=== PATIENT | male | born 1945 | race Caucasian/White ===

== ENCOUNTER 2020-01-02 02:43 | Emergency (ER) | payer OTHER ==
--- OUTSIDE RECORDS SUMMARY | 2020-01-02 02:45 | XMS REPORT ---
:1945 Author Organization eClinicalWorks Care Team Providers Name Role Phone Yovana Osborn Provider Role Unavailable Allergies, Adverse Reactions, Alerts Substance Reaction Event Type N.K.D.A. Info Not Available Non Drug Allergy Problems Problem Type Condition Code Onset Dates Condition Status Problem Pain in limb M79.609 Active Problem Elevated blood pressure reading R03.0 Active without diagnosis of hypertension Problem Depression F32.9 Active Problem Encounter for vitamin deficiency Z13.21 Active screening Assessment Encounter for vitamin deficiency Z13.21 Active screening Problem Depression screening Z13.31 Active Problem Fatigue, unspecified type R53.83 Active Problem Chronic kidney disease, unspecified N18.9 Active CKD stage Problem Hypothyroidism, unspecified type E03.9 Active Problem White coat syndrome with I10 Active hypertension Problem Elevated BP without diagnosis of R03.0 Active hypertension Assessment Fatigue, unspecified type R53.83 Active Assessment Depression screening Z13.31 Active Assessment Elevated BP without diagnosis of R03.0 Active hypertension Assessment Chronic kidney disease, unspecified N18.9 Active CKD stage Problem Creatinine elevation R74.8 Active Problem Chronic renal disease N18.9 Active Assessment Hypothyroidism, unspecified type E03.9 Active Problem Seasonal allergies J30.2 Active Problem Family history of diabetes mellitus Z83.3 Active Medications Medication Code Code Instructions Start End Status Dosage System Date Date Wellbutrin SR ND 85369715730 150 MG Orally Active 1 tablet Twice a day Ultram ND 26927180309 50 MG Orally Active 1 tablet every 6 hrs as needed Effexor XR ND 76733383333 37.5 MG Orally Active 1 capsule Once a day with food [place] Thyroid ND 42482656868 90 MG Orally Active 1 tablet Once a day on an empty stomach Multivitamin ND 17920646227 - Orally Active not Adult defined [place] Thyroid ND 36643824632 60 MG Orally Active 1 tablet Once a day on an empty stomach in the morning Results No Known Results Summary Purpose eClinicalWorks Submission
--- OUTSIDE RECORDS SUMMARY | 2020-01-02 02:45 | XMS REPORT ---
:1945 [facility] Team Providers Name Role Phone Yovana Osborn Provider Role Unavailable Allergies, Adverse Reactions, Alerts Substance Reaction Event Type N.K.D.A. Info Not Available Non Drug Allergy Problems Problem Type Condition Code Onset Dates Condition Status Problem Elevated blood pressure reading R03.0 Active without diagnosis of hypertension Problem Chronic kidney disease, unspecified N18.9 Active CKD stage Problem Hypothyroidism, unspecified type E03.9 Active Problem S/P ACL repair Z98.890 Active Assessment Acute pain of left knee M25.562 Active Problem Depression screening Z13.31 Active Assessment S/P ACL repair Z98.890 Active Problem Acute pain of left knee M25.562 Active Problem White coat syndrome with I10 Active hypertension Problem Elevated BP without diagnosis of R03.0 Active hypertension Problem Fatigue, unspecified type R53.83 Active Problem Encounter for vitamin deficiency Z13.21 Active screening Assessment Hypothyroidism, unspecified type E03.9 Active Assessment Elevated BP without diagnosis of R03.0 Active hypertension Assessment Chronic kidney disease, unspecified N18.9 Active CKD stage Problem Seasonal allergies J30.2 Active Problem Family history of diabetes mellitus Z83.3 Active Problem Creatinine elevation R74.8 Active Problem Pain in limb M79.609 Active Problem Chronic renal disease N18.9 Active Problem Depression F32.9 Active Medications Medication Code Code Instructions Start End Status Dosage System Date Date Wellbut[place] ND 81416162687 150 MG Orally Active 1 tablet Twice a day Multivitamin [facility] 30968728148 - Orally Active not Adult defined Effexor XR [facility] 32862506441 37.5 MG Orally Active 1 capsule Once a day with food Ultram [facility] 65906343496 50 MG Orally Active 1 tablet every 6 hrs as needed [place] Thyroid ND 37110551407 90 MG Orally Active 1 tablet Once a day on an empty stomach [place] Thyroid [facility] 74812671021 60 MG Orally Active 1 tablet Once a day on an empty stomach in the morning Results No Known Results Summary Purpose eClinicalWorks Submission
[2020-01-02] MEDS ORDERED: ADENOSINE 6 MG/ 2ML VIAL IV ONE ×2 (02:59→03:03)
[2020-01-02] MEDS ORDERED: NA CHLORIDE 0.9% 1,000 ML ONE (03:00)
[2020-01-02] MEDS ORDERED: dilTIAZem HCL 25 MG/5 ML VIAL IV ONE (03:13)
[2020-01-02 03:38] LABS: Protime INR 1.09
[2020-01-02 03:40] LABS: Absolute Lymphocytes (CBC) 2.7 K/uL (0.7-4.9); Basophils % 0.9 % (0-1.3); Hematocrit 50.6 % (39.6-49.0); Lymphocytes % 23.3 % (15.3-44.8); MPV 9.1 fL (7.6-11.3)
[2020-01-02 03:53] LABS: Albumin 3.7 g/dL (3.4-5.0); Bilirubin Direct 0.2 mg/dL (0-0.2); Bilirubin Total 0.8 mg/dL (0.2-1.0); Potassium 3.5 mmol/L (3.5-5.1); Protein, Total 7.9 g/dL (6.4-8.2); Troponin (Emerg Dept Use Only) 0.3 ng/mL (0.0-0.045)
--- NOTE | 2020-01-02 07:55 | RAD REPORT ---
EXAM DESCRIPTION: Bettie Single View01/02/2020 4:01 am CLINICAL HISTORY: Chest pain COMPARISON: 2016 FINDINGS: The lungs are hyperaerated The lungs appear clear of acute infiltrate. The heart is normal size IMPRESSION: No acute abnormalities displayed
--- NOTE | 2020-01-02 09:35 | ER ---
Nurse's Notes [facility] Name: Michele Joseph Age: 74 yrs Sex: Male : 1945 Arrival Date: 01/02/2020 Time: 02:44 Bed 4 Private MD: Diagnosis: Supraventricular tachycardia Presentation: 01/02 02:50 Presenting complaint: Patient states: C/O high heart rate and shortness of breath since yesterday morning. Pt denies chest pain. Transition of care: patient was not received from another setting of care. Onset of symptoms was January 01, 2020. Risk Assessment: Do you want to hurt yourself or someone else? Patient reports no desire to harm self or others. Initial Sepsis Screen: Does the patient meet any 2 criteria? HR > 90 bpm. Does the patient have a suspected source of infection? No. Patient's initial sepsis screen is negative. Care prior to arrival: None. 02:50 Method Of Arrival: Ambulatory 02:50 Acuity: SAM 2 Historical: - Allergies: 03:13 No Known Allergies; - Home Meds: 03:13 Thyroid Medicine [Active]; - PMHx: 03:13 Hypothyroidism; - PSHx: 03:13 Knee surgery; Cataract Surgery; - Immunization history:: Adult Immunizations not up to date, Flu vaccine is up to date. - Coronavirus screen:: The patient has NOT traveled to [place], [place], or [place] in the past 14 days. - Social history:: Smoking status: Patient/guardian denies using. - Ebola Screening: : Patient negative for fever greater than or equal to 101.5 degrees Fahrenheit, and additional compatible Ebola Virus Disease symptoms Patient denies exposure to infectious person. Screenin:14 Abuse screen: Denies threats or abuse. Denies injuries from another. Nutritional screening: No deficits noted. Tuberculosis screening: No symptoms or risk factors identified. Fall Risk None identified. Assessment: 02:55 General: Appears distressed, Behavior is cooperative, anxious. Pain: Complains of pain lp1 in chest. Neuro: Level of Consciousness is awake, alert, obeys commands, Oriented to person, place, time, situation. Cardiovascular: Heart tones present Patient's skin is warm and dry. Pulses are all present. Rhythm is SVT. Respiratory: Airway is patent Respiratory effort is even, Respiratory pattern is symmetrical, Breath sounds are clear bilaterally. GI: Abdomen is non-distended, Reports diarrhea. : No signs and/or symptoms were reported regarding the genitourinary system. EENT: No signs and/or symptoms were reported regarding the EENT system. Derm: Skin is pink, warm \T\ dry. Musculoskeletal: No deficits noted. 02:55 Reassessment: Dr. Barajas at bedside to assess patient for rhythm conversion. lp1 03:30 Reassessment: Patient appears in no apparent distress at this time. Patient is alert, lp1 oriented x 3, equal unlabored respirations, skin warm/dry/pink. Patient denies pain at this time. Patient states feeling better. Patient states symptoms have improved. 05:40 Reassessment: Patient is alert, oriented x 3, equal unlabored respirations, skin fc warm/dry/pink. Updated about lab results and pending d/c home Patient denies pain at this time. Patient states feeling better. Vital Signs: 02:50 BP 146 / 128; Pulse 148; Resp 24; Pulse Ox 100% on R/A; lp1 03:00 BP 134 / 83; Pulse 142; Resp 20; Pulse Ox 100% on R/A; wh 03:00 BP 141 / 82; Pulse 142; Resp 20; Pulse Ox 100% on 2 lpm NC; lp1 03:05 BP 110 / 94; Pulse 94; Resp 19; Pulse Ox 100% on 2 lpm NC; lp1 03:10 BP 121 / 107; Pulse 134; Resp 22; Pulse Ox 100% on 2 lpm NC; lp1 03:14 Weight 88.45 kg; Height 6 ft. 0 in. (182.88 cm); wh 03:15 BP 123 / 71; Pulse 67; Resp 18; Pulse Ox 100% on 2 lpm NC; lp1 03:45 BP 122 / 87; Pulse 65; Resp 16; Pulse Ox 100% on R/A; lp1 04:30 BP 114 / 78; Pulse 61; Resp 16; Pulse Ox 99% on R/A; lp1 05:04 BP 113 / 73; Pulse 65; Resp 19; Pulse Ox 98% on R/A; Pain 0/10; lp1 05:48 BP 136 / 85; Pulse 67; Resp 18; Temp 98.0(O); Pulse Ox 96% on R/A; Pain 0/10; fc 03:14 Body Mass Index 26.45 (88.45 kg, 182.88 cm) ED Course: 02:44 Patient arrived in ED. ag3 02:48 Maycol Barajas MD is Attending Physician. tw4 02:55 Initial lab(s) drawn, by mn, sent to lab. Inserted saline lock: 18 gauge in right lp1 antecubital area, using aseptic technique. Blood collected. 03:12 Triage completed. 03:14 Arm band placed on right wrist. 03:14 Patient has correct armband on for positive identification. Bed in low position. Call light in reach. Side rails up X 1. manager property on. Pulse ox on. NIBP on. 03:24 Maia Main RN is Primary Nurse. lp1 04:16 EKG done, by ED staff, reviewed by Maycol Barajas MD. ds4 05:42 Cyrus Lubin MD is Referral Physician. tw4 05:42 Alberto Claudio MD is Referral Physician. tw4 05:48 No provider procedures requiring assistance completed. IV discontinued, intact, fc bleeding controlled, No redness/swelling at site. Pressure dressing applied. Administered Medications: 03:00 Drug: Adenosine 6 mg Route: IVP; Site: right antecubital; lp1 03:02 Follow up: Response: Marked relief of symptoms lp1 03:00 Drug: NS 0.9% 1000 ml Route: IV; Rate: 1000 ml; Site: right antecubital; lp1 04:00 Follow up: Response: No adverse reaction; IV Status: Completed infusion; IV Intake: fc 1000ml 03:10 Drug: Cardizem 10 mg Route: IVP; Site: right antecubital; lp1 03:29 Follow up: Response: Marked relief of symptoms; Cardiac rhythm changed lp1 Intake: 04:00 IV: 1000ml; Total: 1000ml. fc Outcome: 05:38 Discharge ordered by . tw4 05:48 Discharged to home ambulatory, with family. fc 05:48 Condition: good 05:48 Discharge instructions given to patient, family, Instructed on discharge instructions, follow up and referral plans. Demonstrated understanding of instructions, follow-up care, Prescriptions given X none 05:49 Patient left the ED. fc Signatures: Jennifer Diaz RN RN fc Maia Main RN RN lp1 Seven Perdue ds4 Shade Holguin Maycol Barajas MD MD tw4 Tracey Sheth ag3 Corrections: (The following items were deleted from the chart) 04:39 02:50 Acuity: SAM 3 [facility]
--- NOTE | 2020-01-02 09:36 | EDPHYS ---
Physician Documentation [facility] Name: Michele Joseph Age: 74 yrs Sex: Male : 1945 Arrival Date: 01/02/2020 Time: 02:44 Bed 4 Private MD: ED Physician Maycol Barajas HPI: 01/02 04:13 This 74 yrs old Male presents to ER via Ambulatory with complaints of RAPID tw4 HEART RATE. 04:13 The patient presents with a history of heart racing. Context: The symptoms occur at tw4 rest. Onset: The symptoms/episode began/occurred just prior to arrival. Duration: The patient or guardian reports a single episode, that is still ongoing. Modifying factors: The symptoms are aggravated by nothing. The symptoms are alleviated by nothing. Associated signs and symptoms: The patient has no apparent associated signs or symptoms. Severity of symptoms: At their worst the symptoms were moderate in the emergency department the symptoms are unchanged. The patient has not experienced similar symptoms in the past. Historical: - Allergies: 03:13 No Known Allergies; - Home Meds: 03:13 Thyroid Medicine [Active]; - PMHx: 03:13 Hypothyroidism; [facility] PSHx: 03:13 Knee surgery; Cataract Surgery; - Immunization history:: Adult Immunizations not up to date, Flu vaccine is up to date. - Coronavirus screen:: The patient has NOT traveled to [place], [place], or [place] in the past 14 days. - Social history:: Smoking status: Patient/guardian denies using. - Ebola Screening: : Patient negative for fever greater than or equal to 101.5 degrees Fahrenheit, and additional compatible Ebola Virus Disease symptoms Patient denies exposure to infectious person. ROS: 04:13 Constitutional: Negative for fever, chills, and weight loss, Eyes: Negative for injury, tw4 pain, redness, and discharge, Respiratory: Negative for shortness of breath, cough, wheezing, and pleuritic chest pain, Abdomen/GI: Negative for abdominal pain, nausea, vomiting, diarrhea, and constipation, Back: Negative for injury and pain, MS/Extremity: Negative for injury and deformity, Skin: Negative for injury, rash, and discoloration, Neuro: Negative for headache, weakness, numbness, tingling, and seizure. 04:13 Cardiovascular: Positive for palpitations, Negative for chest pain, edema, orthopnea, acute changes. Exam: 04:13 Constitutional: This is a well developed, well nourished patient who is awake, alert, tw4 and in no acute distress. Head/Face: Normocephalic, atraumatic. Eyes: Pupils equal round and reactive to light, extra-ocular motions intact. Lids and lashes normal. Conjunctiva and sclera are non-icteric and not injected. Cornea within normal limits. Periorbital areas with no swelling, redness, or edema. Chest/axilla: Normal chest wall appearance and motion. Nontender with no deformity. No lesions are appreciated. 04:13 Respiratory: Lungs have equal breath sounds bilaterally, clear to auscultation and percussion. No rales, rhonchi or wheezes noted. No increased work of breathing, no retractions or nasal flaring. Abdomen/GI: Soft, non-tender, with normal bowel sounds. No distension or tympany. No guarding or rebound. No evidence of tenderness throughout. Back: No spinal tenderness. No costovertebral tenderness. Full range of motion. MS/ Extremity: Pulses equal, no cyanosis. Neurovascular intact. Full, normal range of motion. Neuro: Awake and alert, GCS 15, oriented to person, place, time, and situation. Cranial nerves II-XII grossly intact. Motor strength 5/5 in all extremities. Sensory grossly intact. Cerebellar exam normal. Normal gait. 04:13 Cardiovascular: Rate: tachycardic, actual rate is 147 bpm, Rhythm: regular, Pulses: no pulse deficits are appreciated, Heart sounds: normal, Edema: is not appreciated. Vital Signs: 02:50 BP 146 / 128; Pulse 148; Resp 24; Pulse Ox 100% on R/A; lp1 03:00 BP 134 / 83; Pulse 142; Resp 20; Pulse Ox 100% on R/A; wh 03:00 BP 141 / 82; Pulse 142; Resp 20; Pulse Ox 100% on 2 lpm NC; lp1 03:05 BP 110 / 94; Pulse 94; Resp 19; Pulse Ox 100% on 2 lpm NC; lp1 03:10 BP 121 / 107; Pulse 134; Resp 22; Pulse Ox 100% on 2 lpm NC; lp1 03:14 Weight 88.45 kg; Height 6 ft. 0 in. (182.88 cm); wh 03:15 BP 123 / 71; Pulse 67; Resp 18; Pulse Ox 100% on 2 lpm NC; lp1 03:45 BP 122 / 87; Pulse 65; Resp 16; Pulse Ox 100% on R/A; lp1 04:30 BP 114 / 78; Pulse 61; Resp 16; Pulse Ox 99% on R/A; lp1 05:04 BP 113 / 73; Pulse 65; Resp 19; Pulse Ox 98% on R/A; Pain 0/10; lp1 05:48 BP 136 / 85; Pulse 67; Resp 18; Temp 98.0(O); Pulse Ox 96% on R/A; Pain 0/10; fc 03:14 Body Mass Index 26.45 (88.45 kg, 182.88 cm) MDM: 02:48 Patient medically screened. tw4 05:49 Differential diagnosis: arrythmia, dehydration, stress disorder. Data reviewed: vital tw4 signs, nurses notes. Data interpreted: traffic monitor specialist: rate is 147 beats/min, rhythm is supraventricular tachycardia, Pulse oximetry: Interpretation: normal. Test interpretation: by ED physician or midlevel provider: ECG. Counseling: I had a detailed discussion with the patient and/or guardian regarding: the historical points, exam findings, and any diagnostic results supporting the discharge/admit diagnosis, lab results, radiology results. Medication response: Cardizem and adenosine. Special discussion: I discussed with the patient/guardian in detail that at this point there is no indication for admission to the hospital. It is understood, however, that if the symptoms persist or worsen the patient needs to return immediately for re-evaluation. ED course: Pt initially converted with adenosine to NSR rhythm then converted to NSR with 10mg of Cardizem. Pt had no CP or SOB with symptoms. Pt's post EKG revealed NSR rhythm with no acute changes. Pts troponin returned 0.3 and repeat three hours post admission to ED was .23. I do not believe that patients elevated troponin represents ACS but rate related. pt has no symptoms during ED stay or upon discharge to suggest ACS. 01/02 02:49 Order name: Basic Metabolic Panel tw4 01/02 02:49 Order name: CBC with Diff tw4 01/02 02:49 Order name: LFT's tw4 01/02 02:49 Order name: Magnesium tw4 01/02 02:49 Order name: NT PRO-BNP 4 01/02 02:49 Order name: PT-INR 4 01/02 02:50 Order name: Troponin (emerg Dept Use Only) 4 01/02 02:50 Order name: XRAY Chest (1 view) 4 01/02 02:50 Order name: EKG; Complete Time: 09:14 tw4 01/02 02:50 Order name: Cardiac monitoring; Complete Time: 02:58 tw4 01/02 04:51 Order name: Troponin (emerg Dept Use Only) 01/02 02:50 Order name: EKG - Nurse/Tech; Complete Time: 02:58 tw4 01/02 02:50 Order name: IV Saline Lock; Complete Time: 02:58 tw4 01/02 02:50 Order name: Labs collected and sent; Complete Time: 02:58 tw4 01/02 02:50 Order name: O2 Per Protocol; Complete Time: 02:58 tw4 01/02 02:50 Order name: O2 Sat Monitoring; Complete Time: 02:58 tw4 EC:07 Rate is 148 beats/min. Rhythm is regular. QRS [place] is Normal. ND interval is normal. tw4 QRS interval is normal. QT interval is normal. No Q waves. T waves are Flattened in lead V6. No ST changes noted. Clinical impression: SVT. Interpreted by me. Reviewed by me. Administered Medications: 03:00 Drug: Adenosine 6 mg Route: IVP; Site: right antecubital; lp1 03:02 Follow up: Response: Marked relief of symptoms lp1 03:00 Drug: NS 0.9% 1000 ml Route: IV; Rate: 1000 ml; Site: right antecubital; lp1 04:00 Follow up: Response: No adverse reaction; IV Status: Completed infusion; IV Intake: fc 1000ml 03:10 Drug: Cardizem 10 mg Route: IVP; Site: right antecubital; lp1 03:29 Follow up: Response: Marked relief of symptoms; Cardiac rhythm changed lp1 Disposition: 01/02/20 05:38 Discharged to Home. Impression: Supraventricular tachycardia. - Condition is Stable. - Discharge Instructions: Paroxysmal Supraventricular Tachycardia, Paroxysmal Supraventricular Tachycardia, [id number]. - Medication Reconciliation Form, Thank You Letter, Antibiotic Education, Prescription Opioid Use form. - Follow up: Private Physician; When: Upon discharge from the Emergency Department; Reason: If symptoms return, Recheck today's complaints, Continuance of care, Re-evaluation by your physician. Follow up: Cyrus Lubin MD; When: Upon discharge from the Emergency Department; Reason: If symptoms return, Recheck today's complaints, Continuance of care, Re-evaluation by your physician. Follow up: Alberto Claudio MD; When: Upon discharge from the Emergency Department; Reason: If symptoms return, Recheck today's complaints, Continuance of care, Re-evaluation by your physician. - Problem is new. - Symptoms have improved. Signatures: Dispatcher [employer] EDMS Jennifer Diaz RN RN Maia Raya RN RN lp1 Shade Holguin Terrence, MD MD tw4 Corrections: (The following items were deleted from the chart) 05:42 05:38 01/02/2020 05:38 Discharged to Home. Impression: Supraventricular tachycardia. tw4 Condition is Stable. Forms are Medication Reconciliation Form, Thank You Letter, Antibiotic Education, Prescription Opioid Use. Follow up: Private Physician; When: Upon discharge from the Emergency Department; Reason: If symptoms return, Recheck today's complaints, Continuance of care, Re-evaluation by your physician. Problem is new. Symptoms have improved. tw4 05:49 05:42 01/02/2020 05:38 Discharged to Home. Impression: Supraventricular tachycardia. Condition is Stable. Discharge Instructions: Paroxysmal Supraventricular Tachycardia, Paroxysmal Supraventricular Tachycardia, [id number]. Forms are Medication Reconciliation Form, Thank You Letter, Antibiotic Education, Prescription Opioid Use. Follow up: Private Physician; When: Upon discharge from the Emergency Department; Reason: If symptoms return, Recheck today's complaints, Continuance of care, Re-evaluation by your physician. Follow up: Cyrus Lubin; When: Upon discharge from the Emergency Department; Reason: If symptoms return, Recheck today's complaints, Continuance of care, Re-evaluation by your physician. Follow up: Alberto Claudio; When: Upon discharge from the Emergency Department; Reason: If symptoms return, Recheck today's complaints, Continuance of care, Re-evaluation by your physician. Problem is new. Symptoms have improved. tw4
--- NOTE | 2020-01-02 10:24 | EKG ---
Test Date: 2020-01-02 Test Time: 03:00:55 Santa'S Helper: ELIER MEASUREMENT RESULTS: Intervals: Rate: 93 [place]: 174 QRSD: 82 QT: 346 QTc: 430 [place]: P: 52 [place]: 174 QRS: -56 T: 47 INTERPRETIVE STATEMENTS: Normal sinus rhythm Left anterior fascicular block Septal infarct, age undetermined Abnormal ECG Compared to ECG 01/02/2020 02:52:32 Left anterior fascicular block now present Myocardial infarct finding now present Supraventricular tachycardia no longer present ST (T wave) deviation no longer present Electronically Signed On 01-02-20 10:23:29 OUTSIDE CUTTER by Alberto Claudio
--- NOTE | 2020-01-02 10:24 | EKG ---
Test Date: 2020-01-02 Test Time: 03:15:14 Plastic Press Molder: ELIER MEASUREMENT RESULTS: Intervals: Rate: 68 [place]: 214 QRSD: 86 QT: 394 QTc: 418 [place]: P: 52 [place]: 214 QRS: -41 T: 5 INTERPRETIVE STATEMENTS: Sinus rhythm with marked sinus arrhythmia with 1st degree AV block Left axis deviation Abnormal ECG Compared to ECG 01/02/2020 03:00:55 First degree AV block now present Left-axis deviation now present Left anterior fascicular block no longer present Myocardial infarct finding no longer present Electronically Signed On 01-02-20 10:23:10 MARKETING ANALYTICS SPECIALIST by Alberto Claudio
--- NOTE | 2020-01-02 10:24 | EKG ---
Test Date: 2020-01-02 Test Time: 02:52:32 Tow Motor Driver: ELIER MEASUREMENT RESULTS: Intervals: Rate: 148 [place]: QRSD: 88 QT: 296 QTc: 464 [place]: P: [place]: QRS: -27 T: -23 INTERPRETIVE STATEMENTS: Supraventricular tachycardia Nonspecific ST abnormality Abnormal ECG Compared to ECG 12/27/2013 14:51:01 ST (T wave) deviation now present Sinus bradycardia no longer present Electronically Signed On 01-02-20 10:23:41 CYLINDER VALVE REPAIRER by Alberto Claudio
--- NOTE | 2020-01-02 10:24 | EKG ---
Test Date: 2020-01-02 Test Time: 03:19:15 Chemistry Teacher: ELIER MEASUREMENT RESULTS: Intervals: Rate: 66 [place]: 210 QRSD: 88 QT: 428 QTc: 448 [place]: P: 55 [place]: 210 QRS: -21 T: 3 INTERPRETIVE STATEMENTS: Sinus rhythm with 1st degree AV block with premature atrial complexes in a pattern of bigeminy Otherwise normal ECG Compared to ECG 01/02/2020 03:15:14 Atrial premature complex(es) now present Sinus arrhythmia no longer present Left-axis deviation no longer present Electronically Signed On 01-02-20 10:23:07 SHIP YARD ELECTRICAL PERSON by Alberto Claudio
== END 2020-01-02 05:49 | disposition home or self-care (01) ==
LOC: ER 02:43
DX: I47.1 Supraventricular tachycardia (principal); E03.9 Hypothyroidism, unspecified
CPT/HCPCS: 96361; 93005 ×4; 85025; 80048; 36415; 83735; 85610; 80076; 84484 ×2; 83880; 71045; 96375; 96374; 99285; J0153; J7030

== ENCOUNTER 2020-06-03 17:41 | Emergency (ER) | payer OTHER ==
--- OUTSIDE RECORDS SUMMARY | 2020-06-03 17:43 | XMS REPORT | Clinical Summary ---
:1945 Author Organization [facility] Address [address] [place] [id number] Care Team Providers Name Role Phone Asked, Pcp Primary Care Provider Unavailable Allergies No Known Allergies Medications Medication Sig Dispensed Refills Start Date End Date Status thyroid, pork, Take 60 mg 0 Acti ve (ARMOUR THYROID) 60 by mouth mg tablet daily. cholecalciferol, Take 2,000 0 Ac tive vitamin D3, 50 mcg Units by (2,000 unit) capsule mouth capsule daily. cyanocobalamin Take 1,000 0 Acti ve (VITAMIN B-12) 1000 mcg by MCG tablet mouth daily. metoprolol tartrate Take 50 mg 0 Discontinued (LOPRESSOR) 50 mg by mouth 0 tablet daily. Take half a pill daily metoprolol succinate Take 25 mg 0 05/07/20 2 Discontinued XL (TOPROL-XL) 50 mg by mouth 0 (Stop Taking at 24 hr tablet every other Disch arge) day. 1/2 tab Active Problems No known active problems Encounters Date Type Specialty Care Team Description 05/06/2020 Surgery Procedural Abbe Beatty EP COMPLETE EP STUDY W Cardiology MD Darcy ABLATION SVT [9 3653 (CPT)] 05/06/2020 Anesthesia Event Procedural Latoya, Cardiology MD Jaren Denton Amanda, MOLDER MACHINE 05/06/2020 Hospital Encounter Procedural Abbe Beatty Paroxysma l Hayden Taveras MD supraventricula r tachycardia (HC C) 05/06/2020 Travel 04/28/2020 Travel after 06/03/2019 Family History Medical History Relation Name Comments Diabetes Father Relation Name Status Comments Father Social History Tobacco Use Types Packs/Day Years Used Date Never Smoker Alcohol Use Drinks/Week oz/Week Comments Never Alcohol Habits Answer Date Recorded How often do you have a drink containing alcohol? Never 05/06/2020 How many drinks containing alcohol do you have on a typical Not asked day when you are drinking? How often do you have six or more drinks on one occasion? No t asked Sex Assigned at Date Recorded Not on file Job Start Date Occupation Industry Not on file Not on file Not on file Travel History Travel Start Travel End No recent travel history available. COVID-19 Exposure Response Date Recorded In the last month, have you been in contact with No / Unsure 05/06/2020 6:09 AM CDT someone who was confirmed or suspected to have Coronavirus / COVID-19? Last Filed Vital Signs Vital Sign Reading Time Taken Comments Blood Pressure 157/88 05/06/2020 1:45 PM CDT Pulse 54 05/06/2020 1:45 PM CDT Temperature 36.2 C (97.2 F) 05/06/2020 9:45 AM CDT Respiratory Rate 19 05/06/2020 1:45 PM CDT Oxygen Saturation 97% 05/06/2020 1:45 PM CDT Inhaled Oxygen Concentration - - Weight 89.4 kg (197 lb) 05/06/2020 6:49 AM CDT Height 182.9 cm (6') 05/06/2020 6:49 AM CDT Body Mass Index 26.72 05/06/2020 6:49 AM CDT Plan of Treatment Not on file Procedures Procedure Name Priority Date/Time Associated Diagnosis Comme nts ECG 12-LEAD STAT 05/06/2020 10:01 Results for this AM CDT procedure are i n the results section. EP COMPLETE EP Routine 05/06/2020 9:28 Paroxysmal Results f or this STUDY W ABLATION AM CDT supraventricular procedu re are in SVT tachycardia (HCC) the result s section. TYPE AND SCREEN STAT 05/06/2020 6:46 Results for this AM CDT procedure are i n the results section. ECG 12-LEAD STAT 05/06/2020 6:26 Results for this AM CDT procedure are i n the results section. after 06/03/2019 Results ECG 12 lead (05/06/2020 10:01 AM CDT)Only the most recent of2 resultswithin the time period is included. Pathologist Sig nature Ventricular rate 66 [facility] Atrial rate 66 [facility] W[place] interval 218 [facility] QRSD interval 92 [facility] QT interval 448 [facility] QTC interval 469 [facility] M[facility] P axis 1 71 [facility] QRS axis 1 -26 [facility] M[facility] T wave axis 12 [facility] EKG impression Sinus rhythm with 1st [facility] degree AV block-Otherwise normal ECG-- Specimen Narrative Performed At This result has an attachment that is no t available. Performing Organization Address City/State/Zipcode Phone Number [facility] M[facility] [address] [place] [address] Electrophysiology procedure (05/06/2020 9:28 AM CDT) Specimen Narrative Performed At This result has an attachment that is no t available. TITLE OF PROCEDURE: [facility] CUPID Diagnostic electrophysiology study, radiofrequency abl ation. PREOPERATIVE DIAGNOSIS: Supraventricular tachycardia. 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 PROCEDURES PERFORMED: 1. Monitored anesthesia care. 2. Intracardiac 3-dimensional mapping. 3. Diagnostic EP study with coronary sinus catheter placement. 4. Use of intravenous Isuprel, pre- and post-ablatio n. 5. Radiofrequency ablation. 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 The SVT was captured on an event recorder and appears to be re gular narrow complex tachycardia without evident P-wave morphology noted elizondo ggesting AVNRT. PROCEDURE IN DETAIL: The patient was taken to the EP lab in the fasting non sedated drug-free state. Informed consent had been obtained and reconfirmed. Monitored anesthesia care was provided. Access to the right femoral vein was achieved x3; and 6, 7, and 8-Irish sheaths were placed. Through the 7-Irish sheath, a [place]apola r pacing and recording catheter was advanced into the coronary sinus such tita t we could record left atrial and ventricular electrograms and pace the poste rior right atrium from the proximal bipolar. A quadripolar catheter was placed in the RV apex and i t should be noted that tachycardia was noted throughout the insertion of the catheters and was highly suggestive of AVNRT. Subsequently, the diagnostic st udy confirmed AVNRT and radiofrequency ablation targeting the slow pathway reg ion was performed utilizing intracardiac 3-dimensional mapping as well a s biplane fluoroscopy. Junctional rhythm was achieved on numerous application s of RF energy. Thereafter, intravenous Isuprel was initiated and adva nced to 6 mcg per minute and the post-ablation EP study was commenced. After completion of the study, all catheters and sheaths were removed and hemostasis was achieved using direct digital pressure after which a pressure band was appli ed. COMPLICATIONS: None. FINDINGS: 1. Estimated blood loss 6 mL. 2. Baseline intervals: Sinus cycle length 1462, AH 144, HV 48, QRS 102, QT 482. Antegrade AV node block cycle length in the sed ated state was 750. Postablation on Isuprel was 380. Antegrade fast path way ERP postablation on Isuprel at a drive of 600 was 320 milliseconds. Ante grade AV node ERP postablation was 320, fast pathway ERP at a drive of 8 00 milliseconds was 630. 3. Characteristics of arrhythmias: This was AVNRT of the common type. There was simultaneous activation of the atrial and ventricu lar electrograms noted in the coronary sinus and V-RA time was less than 90 mill iseconds. Radiofrequency ablation targeting the slow pathway region resulted in junctional rhythm on numerous occasions and post-ablation there was no ron cible SVT on up to 6 mcg per minute. CONCLUSIONS: Successful acute ablation of the slow pathway with abo lition of SVT as the mechanism of AVNRT. RECOMMENDATIONS: Discharge to home in 4 hours. Performing Organization Address [facility]/Zipcode Phone Number [facility] [address] [place] [address] Type and screen (05/06/2020 6:46 AM CDT) Pathologist Sig nature ABO grouping O [facility] Rh type POS [facility] Antibody screen (gel) NEG [facility] Specimen Blood Performing Organization Address City/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
--- OUTSIDE RECORDS SUMMARY | 2020-06-03 17:44 | XMS REPORT ---
:1945 Author Organization [employer] Care Team Providers Name Role Phone Yovana Osborn Provider Role Unavailable Allergies, Adverse Reactions, Alerts Substance Reaction Event Type N.K.D.A. 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 Problem Fatigue, unspecified type R53.83 Ac tive Problem Encounter for vitamin deficiency Z13.21 Active screening Problem S/P ACL repair Z98.890 Active Problem Depression screening Z13.31 Active Problem Elevated blood pressure reading R03.0 Active without diagnosis of hypertension Problem Creatinine elevation R74.8 Active Assessment Hypothyroidism, unspecified type E03.9 Active Problem Family history of diabetes mellitus Z83.3 Active Problem Pain in limb M79.609 Active Problem Chronic renal disease N18.9 Active Problem Depression F32.9 Active Assessment Elevated alkaline phosphatase level R74.8 Active Problem Seasonal allergies J30.2 Active Problem Hypothyroidism, unspecified type E03.9 Active Medications Medication Code Code Instructions Start End Status Dosage System Date Date Effexor XR [facility] 45419248408 37.5 MG Orally Active 1 capsule Once a day with food [place] Thyroid [facility] 43556173964 90 MG Orally Active 1 tablet Once a day on an empty stomach [place] 95567489043 60 MG Orally Active 1 tablet Once a day on an empty stomach in the morning Wellbutrin SR ND 48506729810 150 MG Orally Active 1 tablet Twice a day Ultram [facility] 99104799079 50 MG Orally Active 1 table t every 6 hrs as needed Metoprolol [facility] [address]-56 25 MG Orally Active 1 capsule Succinate Once a day Multivitamin [facility] 65417559044 - Orally Active not Adult defined Results No Known Results Summary Purpose eClinicalWorks Submission
--- OUTSIDE RECORDS SUMMARY | 2020-06-03 17:44 | XMS REPORT | Continuity of Care Document ---
:1945 Author Organization [facility] Address [address] [place] [address] Care Team Providers Name Role Phone Asked, No Pcp Primary Care Physician Unavailable Rogerio SIMMONS Attending Clinician Johnathan Klein MD Attending Clinician Jaren CAMPOS Attending Clinician Unavailable ROGERIO Admitting Clinician Unavailable Payers Payer Name Policy Policy Number Effective Expiration Source Type Date Date AETNAAETNA PPO OPEN xxxxxxxxx 2000 [place] CHOICExxxxxxxxx1 00:00:00 Met ayden -[facility] MEDICAREMEDICARE PART xxxxxxxxxxx 2012 Onesimo Hamilton AND 00:00:00 [place]aoism [id number][place] [facility] Problems Condition Condition Condition Status Onset Resolution Last Treating Co mments Source Name Details Category Date Date Treatment Clinician Date Elevated Elevated Diagnosis Active [facility] alkaline alkaline [facility] phosphatas phosphatas Me moria e level e level l [facility] Seasonal Seasonal Problem Active [facility] allergies allergies [facility] - [facility] Chronic Chronic Problem Active [facility] renal renal [facility] disease disease [facility] Elevated Elevated Problem Active [facility] blood blood [facility] - pressure pressure Memori a reading reading l without without Outpati diagnosis diagnosis ent of of Clinics hypertensi hypertensi on on Hypothyroi Hypothyroi Problem Active [facility] dism, dism, [facility] - unspecifie unspecifie Me moria d type d type l [facility] Pain in Pain in Problem Active [facility] limb limb [facility] Family Family Problem Active [facility] history of history of Hmua kes - diabetes diabetes Memori a mellitus mellitus l [facility] Depression Depression Problem Active [facility] White coat White coat Problem Active [facility] syndrome syndrome [facility] - with with Memoria hypertensi hypertensi l on on [facility] Encounter Encounter Problem Active [facility] for for [facility] - vitamin vitamin Memoria deficiency deficiency l screening screening Outp ati ent Clinics Fatigue, Fatigue, Problem Active [facility] unspecifie unspecifie [place]uma kes - d type d type Memoria l [facility] ent Clinics Depression Depression Problem Active [facility] screening screening Luke s - Memoria l [facility] ent Clinics S/P ACL S/P ACL Problem Active [facility] repair repair [facility] Acute pain Acute pain Problem Active [facility] of left of left [facility] - knee knee Memoria l [facility] Clinics Eosinophil Eosinophil Problem Active [facility] ia ia [facility] ent Clinics Allergies, Adverse Reactions, Alerts This patient has no known allergies or adverse reactions. Family History Family Member Diagnosis Comments Start Date Stop Date Source Natural [facility] Social History Social Habit Start Date Stop Date Quantity Comments Source History [facility] Meth odist Alcohol Std Drinks History [facility] Meth odist Alcohol Binge Sex Assigned At [facility] ethodist Exposure to Not sure Effie Metho dist SARS-CoV-2 (event) Alcohol intake 2020-05-15 2020-05-15 Lifetime [facility] thodist 00:00:00 00:00:00 non-drinker (finding) History [facility] 2020-05-06 2020-05-06 1 Effie Meth odist Alcohol Frequency 00:00:00 00:00:00 Smoking Status Start Date Stop Date Source Never smoker Effie [facility] Medications Ordered Filled Start Stop Current Ordering Indication Dosage Frequency Signature Comments Components Source Medication Medication Date Date Medication? Clinician (SIG) Name Name metoprolol 2019- No 25mg Q2D Take 25 mg Marquez succinate 05-07 by mouth Metho di XL 09:30: 00:[address] (TOPROL-XL) 59 :00 other day. 50 mg 24 hr 1/2 tab tablet thyroid, Yes 60mg QD Take 60 mg Katelynn ston pork, 6-11 by mouth Methodi (ARMOUR 09:30: daily. st THYROID) 60 56 mg tablet cholecalcif 2019-0 Yes 2000U QD Take 2,000 Marquez bessie, 6-11 Units by Methodi vitamin D3, 09:30: mouth st 50 mcg 56 daily. (2,000 unit) capsule capsule cyanocobala 2019-0 Yes 1000ug QD Take 1,000 Marquez min 6-11 mcg by Method[facility] (VITAMIN 09:30: mouth st B-12) 1000 56 daily. MCG tablet metoprolol 2019- No 50mg Take 50 mg Marquez tartrate 6 0610 by mouth Method i (LOPRESSOR) 09:45: 00:[address] 50 mg 37 :00 Take half tablet a pill daily [facility] Yes Yovana [address] [facility] Thyroid Thyroid 6-05 Millender on an Zakia es - 00:00: empty Memoria 00 stomach in l the [facility] Clinics Wellbutrin Wellbutrin Yes Yovana [address] SR SR Millender [facility]ics Ultram Ultram Yes Yovana [address] [facility] Millender as needed [facility] l Outpati ent Clinics [facility] Yes Yovana [address] [facility] Thyroid Thyroid Millender on an Zakia es - empty Memoria stomach l [facility] Effexor XR Effexor XR Yes Yovana [address] Millender with food [facility] Multivitami Multivitami Yes Yovana not [facility] n Adult n Adult Millender defined L ukes - Memoria l [facility] Metoprolol Metoprolol Yes Yovana [address] Succinate Succinate Millender [facility] Vital Signs Vital Name Observation Time Observation Value Comments Source Systolic blood 2020-05-06 13:45:00 157 mm[Hg] Luda n Hoahaoism pressure Diastolic blood 2020-05-06 13:45:00 88 mm[Hg] Mary Jo on Hoahaoism pressure Heart rate 2020-05-06 13:45:00 54 /min Jimmy Finley Respiratory rate 2020-05-06 13:45:00 19 /min Yoni ton [facility]ah[facility]ism Oxygen saturation in 2020-05-06 13:45:00 97 /min Jimmy Finley Arterial blood by Pulse oximetry Body temperature 2020-05-06 09:45:00 36.22 Valeria Hous ton [facility]ism Body height 2020-05-06 06:49:00 182.9 cm Jimmy Finley Body weight 2020-05-06 06:49:00 89.359 kg Jimmy Finley BMI 2020-05-06 06:49:00 26.72 kg/m2 Jimmy Finley Procedures Procedure Date / Time Performed Performing Clinician Sourc e ECG 12-LEAD 2020-05-06 10:01:09 RogerioCynhien Ovalles odjazmín EP COMPLETE EP STUDY W 2020-05-06 09:28:37 Abbe Beatty on Hoahaoism ABLATION SVT TYPE AND SCREEN 2020-05-06 06:46:00 RogerioCyn baronehien Ovalles odjazmín ECG 12-LEAD 2020-05-06 06:26:22 Abbe Beatty Jimmy Ovalles odjazmín Encounters Start End Encounter Admission Attending Care Care Encounter Source Date/Time Date/Time Type Type Clinicians Facility Department ID 2020-05-06 2020-05-06 Outpatient ROGERIO [facility] [id number] Effie 00:00:00 00:00:00 NADIM [address] 2020-05-05 2020-05-05 Outpatient Hua Sequeirat [id number] [facility] 13:40:00 13:40:00 [facility] 2019-10-17 2019-10-17 Outpatient Brazjose luis Sequeirat [id number] [facility] 13[facility]20:00 13:20:00 [facility] Medicine Outpati ent Clinics 2019-07-17 2019-07-17 Outpatient Hua Sequeirat [id number] 16:22:00 16:22:00 [facility] Medicine Medicine Outpati ent Clinics 2019-07-17 2019-07-17 Outpatient [place] [id number] 13:20:00 13:20:00 [facility] Medicine Outpati ent Clinics 2019-06-17 2019-06-17 Outpatient Brazjose luis Sequeirat [id number] [facility] 14:00:00 14:00:00 [facility] Medicine Outpati ent Clinics 2018-08-08 2018-08-08 Outpatient Hua Carrillo [id number] [facility] 16:00:00 16:00:00 [facility] 2018-08-02 2018-08-02 Outpatient Hua Carrillo [id number] 09:16:00 09:16:00 [facility] 2018-05-01 2018-05-01 Outpatient Hua Carrillo [id number] [facility] 23:46:00 23:46:00 [facility] 2018-05-01 2018-05-01 Outpatient Hua Carrillo [id number] 21:43:00 21:43:00 [facility] 2018-05-01 2018-05-01 Outpatient Hua Carrillo [id number] 11:00:00 11:00:00 [facility] Results Test Description Test Test Results Result Source Time Comments Comments Electrophysiology 2020-04 TITLE OF Effie procedure -13 PROCEDURE:Diagnostic Charlette mustafajazmín 13:45:3 electrophysiology study, 4 radiofrequency ablation.PREOPERATIVE DIAGNOSIS:Supraventricula r tachycardia.POSTOPERATIVE DIAGNOSIS:Atrioventricula r abhijit 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 Monitored anesthesia care.2. Intracardiac 3-dimensional mapping.3. Diagnostic EP study with coronary sinus catheter placement.4. Use of intravenous Isuprel, pre- and post-ablation.5. Radiofrequency ablation.BRIEF HISTORY AND CLINICAL BACKGROUND:This is a 74-year-old man who has a history of episodic SVT typically provokedwith exercise. 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 The SVTwas captured on an event recorder and appears to be regular narrow complextachycardia without evident P-wave morphology noted suggesting AVNRT.PROCEDURE IN DETAIL:The patient was taken to the EP lab in the fasting nonsedated drug-free state. Informed consent had been obtained and reconfirmed. Monitored anesthesia carewas provided.Access to the right femoral vein was achieved x3; and 6, 7, and 8-Amharic sheathswere placed. Through the 7-Amharic sheath, a Decapolar pacing and recordingcatheter was advanced into the coronary sinus such that we could record leftatrial and ventricular electrograms and pace the posterior right atrium from theproximal bipolar.A quadripolar catheter was placed in the RV apex and it should be noted thattachycardia was noted throughout the insertion of the catheters and was highlysuggestive of AVNRT. Subsequently, the diagnostic study confirmed AVNRT andradiofrequency ablation targeting the slow pathway region was performedutilizing intracardiac 3-dimensional mapping as well as biplane fluoroscopy. Junctional rhythm was achieved on numerous applications of RF energy.Thereafter, intravenous Isuprel was initiated and advanced to 6 mcg per minuteand the post-ablation EP study was commenced. After completion of the study,all catheters and sheaths were removed and hemostasis was achieved using directdigital pressure after which a pressure band was applied.COMPLICATIONS:Non e.FINDINGS:1. Estimated blood loss 6 mL.2. Baseline intervals: Sinus cycle length 1462, AH 144, HV 48, QRS 102, QT482. Antegrade AV node block cycle length in the sedated state was 750. Postablation on Isuprel was 380. Antegrade fast pathway ERP postablation onIsuprel at a drive of 600 was 320 milliseconds. Antegrade AV node ERPpostablation was 320, fast pathway ERP at a drive of 800 milliseconds was 630.3. Characteristics of arrhythmias: This was AVNRT of the common type. Therewas simultaneous activation of the atrial and ventricular electrograms noted inthe coronary sinus and V-RA time was less than 90 milliseconds. Radiofrequencyablation targeting the slow pathway region resulted in junctional rhythm onnumerous occasions and post-ablation there was no inducible SVT on up to 6 mcgper minute.CONCLUSIONS:Succes sful acute ablation of the slow pathway with abolition of SVT as themechanism of AVNRT.RECOMMENDATIONS:Dis charge to home in 4 hours. ECG 12 lead 2020-05-06 21:16:51 Test Item Value Reference Range Interpretation Comme nts Ventricular rate (test code = 253) 66 Atrial rate (test code = 255) 66 NH interval (test code = 266) 218 QRSD interval (test code = 260) 92 QT interval (test code = 264) 448 QTC interval (test code = 265) 469 P axis 1 (test code = 267) 71 QRS axis 1 (test code = 268) -26 T wave axis (test code = 270) 12 EKG impression (test code = 273) Sinus rhythm with 1st degree AV block-Otherwise normal ECG-- Jimmy FinleyType and [id number] 08:00:00 Test Item Value Reference Range Interpretation Comments ABO grouping (test code = 883-9) O Rh type (test code = 64254-7) POS Antibody screen (gel) (test code = NEG 890-4) Jimmy Finley
[2020-06-03] MEDS ORDERED: LIDOCAINE 1% MPF 30 ML VIAL ONE (18:23)
--- NOTE | 2020-06-03 18:52 | EDPHYS ---
Physician Documentation [facility] Name: Michele Joseph Age: 74 yrs Sex: Male : 1945 Arrival Date: 06/03/2020 Time: 17:43 Bed 23 Private MD: Yovana Osborn ED Physician Steven Vang HPI: 06/03 18:44 This 74 yrs old Male presents to ER via Ambulatory with complaints of Toe snw Injury. 18:44 The patient presents with decreased range of motion, pain, profuse bleeding. The snw complaints affect the left foot. Context: The problem was sustained at home, resulted from stubbing toe on Mechanism of Injury: Adduction the patient can fully bear weight, the patient is able to ambulate. Onset: The symptoms/episode began/occurred suddenly, just prior to arrival. Associated signs and symptoms: Pertinent positives: profuse bleeding. Severity of symptoms: At their worst the symptoms were moderate. The patient has not experienced similar symptoms in the past. It is unknown whether or not the patient has recently seen a physician. Historical: - Allergies: 18:07 No Known Allergies; ss - PMHx: 18:07 Hypothyroidism; ss - PSHx: 18:07 Knee surgery; Cataract Surgery; ss - Immunization history:: Adult Immunizations up to date. - Social history:: Smoking status: Patient denies any tobacco usage or history of. ROS: 18:39 Constitutional: Negative for fever, chills, and weight loss, Eyes: Negative for injury, snw pain, redness, and discharge, ENT: Negative for injury, pain, and discharge, Neck: Negative for injury, pain, and swelling, Cardiovascular: Negative for chest pain, palpitations, and edema, Respiratory: Negative for shortness of breath, cough, wheezing, and pleuritic chest pain, Abdomen/GI: Negative for abdominal pain, nausea, vomiting, diarrhea, and constipation, Back: Negative for injury and pain, : Negative for injury, bleeding, discharge, and swelling, Neuro: Negative for headache, weakness, numbness, tingling, and seizure. 18:39 MS/extremity: Positive for injury or acute deformity, laceration, tenderness. 18:39 Skin: Positive for laceration(s), of the left first toe. Exam: 18:38 Constitutional: This is a well developed, well nourished patient who is awake, alert, snw and in no acute distress. Head/Face: Normocephalic, atraumatic. Eyes: Pupils equal round and reactive to light, extra-ocular motions intact. Lids and lashes normal. Conjunctiva and sclera are non-icteric and not injected. Cornea within normal limits. Periorbital areas with no swelling, redness, or edema. ENT: Nares patent. No nasal discharge, no septal abnormalities noted. Tympanic membranes are normal and external auditory canals are clear. Oropharynx with no redness, swelling, or masses, exudates, or evidence of obstruction, uvula midline. Mucous membranes moist. Neck: Trachea midline, no thyromegaly or masses palpated, and no cervical lymphadenopathy. Supple, full range of motion without nuchal rigidity, or vertebral point tenderness. No Meningismus. Chest/axilla: Normal chest wall appearance and motion. Nontender with no deformity. No lesions are appreciated. Cardiovascular: Regular rate and rhythm with a normal S1 and S2. No gallops, murmurs, or rubs. Normal PMI, no JVD. No pulse deficits. Respiratory: Lungs have equal breath sounds bilaterally, clear to auscultation and percussion. No rales, rhonchi or wheezes noted. No increased work of breathing, no retractions or nasal flaring. Abdomen/GI: Soft, non-tender, with normal bowel sounds. No distension or tympany. No guarding or rebound. No evidence of tenderness throughout. Back: No spinal tenderness. No costovertebral tenderness. Full range of motion. Neuro: Awake and alert, GCS 15, oriented to person, place, time, and situation. Cranial nerves II-XII grossly intact. Motor strength 5/5 in all extremities. Sensory grossly intact. Cerebellar exam normal. Normal gait. Psych: Awake, alert, with orientation to person, place and time. Behavior, mood, and affect are within normal limits. 18:38 Skin: Appearance: normal except for affected area, injury, laceration(s), the wound is approximately 3 cm(s), with a depth of 2 cm(s), of the left first toe. 18:39 Musculoskeletal/extremity: ROM: full thickness to distal toenail, bleeding profusely. snw Pressure applied, cleansed with hibiclens. Lidocaine injected into area, 4 stitches applied. Bleeding controlled. x-ray performed., Circulation is intact in all extremities. Vital Signs: 18:06 BP 164 / 84; Pulse 71; Resp 18; Temp 98.8(TE); Pulse Ox 96% on R/A; Weight 90.72 kg; ss Height 6 ft. 0 in. (182.88 cm); Pain 0/10; 18:06 Body Mass Index 27.12 (90.72 kg, 182.88 cm) ss Laceration: 18:42 Wound Repair of 4cm ( 1.6in ) full thickness laceration to left first toe. Linear snw shaped.. Distal neuro/vascular/tendon intact. Anesthesia: Local anesthetic administered with 5 mls of 1% lidocaine. Wound prep: Extensive cleansing with hibiclenz. Skin closed with 4 4-0 Prolene using simple sutures and sterile technique. Dressed with pressure dressing. Patient tolerated well. MDM: 18:47 Data reviewed: vital signs, nurses notes. Data interpreted: Pulse oximetry: on room air snw is 96 %. Interpretation: acceptable. Counseling: I had a detailed discussion with the patient and/or guardian regarding: the historical points, exam findings, and any diagnostic results supporting the discharge/admit diagnosis, the presence of at least one elevated blood pressure reading (>120/80) during this emergency department visit, radiology results, the need for outpatient follow up, for definitive care, a hand specialist, to return to the emergency department if symptoms worsen or persist or if there are any questions or concerns that arise at home. Response to treatment: the patient's symptoms have markedly improved after treatment. Physician consultation: Jared Ding MD was called at 18:48, was contacted at 18:48, regarding patient's condition, need to evaluate the patient as soon as possible, outpatient follow-up, F/u in [place] office at 9am. 18:51 Patient medically screened. snw 06/03 18:11 Order name: XRAY Foot LEFT 2 View ss 06/03 18:57 Order name: Wound dressing; Complete Time: 19:03 snw 06/03 19:02 Order name: Post-op shoe; Complete Time: 19:03 snw Administered Medications: 19:02 Drug: Tetanus-Diphtheria Toxoid Adult 0.5 ml {Hospitality Coordinator: [employer]. Exp: hb 01/10/2022. Lot #: [id number]. } Route: IM; Site: left deltoid; 19:21 Follow up: Response: No adverse reaction hb 19:02 Drug: KeFLEX 500 mg Route: PO; hb 19:21 Follow up: Response: Medication administered at discharge. hb Disposition: 06/04 07:09 Co-signature as Attending Physician, Steven Vang MD I agree with the assessment and kdr plan of care. Disposition: 06/03/20 18:51 Discharged to Home. Impression: Laceration without foreign body of left great toe without damage to nail, Nondisplaced fracture of distal phalanx of left great toe. - Condition is Stable. - Discharge Instructions: Laceration Care, Adult, RICE for Routine Care of Injuries, Toe Fracture, VIS, Tetanus, Diphtheria (Td) - [facility]. - Prescriptions for Keflex 500 mg Oral Capsule - take 1 capsule by ORAL route every 8 hours for 10 days; 30 capsule. Ultram 50 mg Oral Tablet - take 1 tablet by ORAL route every 6 hours As needed; 12 tablet. - Medication Reconciliation Form, Thank You Letter, Antibiotic Education, Prescription Opioid Use form. - Follow up: Emergency Department; When: As needed; Reason: Worsening of condition. Follow up: Jared Ding MD; When: Monday at [place] office at 9am; Reason: Recheck today's complaints, Continuance of care. Signatures: Dispatcher [employer] EDMS Steven Vang MD MD kdr Waters, Shelly, POLYETHYLENE COMBINER-C POLYETHYLENE COMBINER-Jacquelinew Lucy Way RN RN Shirlene Eddy RN RN Corrections: (The following items were deleted from the chart) 06/03 18:42 18:38 Skin: Appearance: normal except for affected area, injury, laceration(s), the snw wound is approximately 3 cm(s), with a depth of 2 cm(s), of the left first toe, snw 19:22 18:51 06/03/2020 18:51 Discharged to Home. Impression: Laceration without foreign body hb of left great toe without damage to nail; Nondisplaced fracture of distal phalanx of left great toe. Condition is Stable. Forms are Medication Reconciliation Form, Thank You Letter, Antibiotic Education, Prescription Opioid Use. Follow up: Emergency Department; When: As needed; Reason: Worsening of condition. Follow up: Jared Ding; When: Monday at [place] office at 9am; Reason: Recheck today's complaints, Continuance of care. snw
--- NOTE | 2020-06-03 18:52 | ER ---
Nurse's Notes [facility] Name: Michele Joseph Age: 74 yrs Sex: Male : 1945 Arrival Date: 06/03/2020 Time: 17:43 Bed 23 Private MD: Yovana Osborn Diagnosis: Laceration without foreign body of left great toe without damage to nail;Nondisplaced fracture of distal phalanx of left great toe Presentation: 06/03 18:06 Chief complaint: Patient states: "I hurt my big toe an hour and a half ago and I split ss it just at the joint and it just wont stop bleeding." Pressure dressing applied in triage. Coronavirus screen: Proceed with normal triage. Patient denies a cough. Patient denies shortness of breath or difficulty breathing. Patient denies measured and/or subjective temperature greater than 100.4F prior to today's visit. Patient denies travel on a cruise ship or to a country the [facility] currently lists as an affected area. Patient denies contact with known and/or suspected case of COVID-19. Ebola Screen: Patient denies exposure to infectious person. Patient denies travel to an Ebola-affected area in the 21 days before illness onset. Initial Sepsis Screen: Does the patient meet any 2 criteria? No. Patient's initial sepsis screen is negative. Does the patient have a suspected source of infection? No. Patient's initial sepsis screen is negative. Risk Assessment: Do you want to hurt yourself or someone else? Patient reports no desire to harm self or others. Onset of symptoms was June 03, 2020. 18:06 Method Of Arrival: Ambulatory ss 18:06 Acuity: SAM 4 ss Historical: - Allergies: 18:07 No Known Allergies; ss - PMHx: 18:07 Hypothyroidism; ss - PSHx: 18:07 Knee surgery; Cataract Surgery; ss - Immunization history:: Adult Immunizations up to date. - Social history:: Smoking status: Patient denies any tobacco usage or history of. Screenin:11 Abuse screen: Denies threats or abuse. Denies injuries from another. Nutritional ss screening: No deficits noted. Tuberculosis screening: Never had TB. Fall Risk None identified. Assessment: 18:10 General: Appears in no apparent distress. comfortable, Behavior is cooperative, ss talkative . Pain: Denies pain. Neuro: Level of Consciousness is awake, alert, obeys commands, Oriented to person, place, time, situation. Respiratory: Airway is patent Respiratory effort is even, unlabored, Respiratory pattern is regular, symmetrical. Derm: Skin is intact, is healthy with good turgor, Skin is dry, Skin is pink, warm \\T\\ dry. normal. Musculoskeletal: Circulation, motion, and sensation intact. Range of motion: intact in all extremities, Swelling absent. Injury Description: Laceration sustained to left first toe is 0.5 to 2.5 cm long, bleeding moderately. 18:10 EENT: Oral mucosa is moist. ss 18:12 Reassessment: pressure dressing placed onto affected toe. Pt denies pain at this time. ss 19:02 Reassessment: laceratoin repair complete, pressure dressing applied per AMBER Whatley. hb Discharge pending shot wait time. Vital Signs: 18:06 BP 164 / 84; Pulse 71; Resp 18; Temp 98.8(TE); Pulse Ox 96% on R/A; Weight 90.72 kg; ss Height 6 ft. 0 in. (182.88 cm); Pain 0/10; 18:06 Body Mass Index 27.12 (90.72 kg, 182.88 cm) ED Course: 17:43 Patient arrived in ED. ag5 17:43 Yovana Osborn MD is Private Physician. ag5 18:07 Triage completed. ss 18:07 Arm band placed on right wrist. ss 18:[address], RN is Primary Nurse. ss 18:11 Patient has correct armband on for positive identification. Bed in low position. Call ss light in reach. 18:11 No provider procedures requiring assistance completed. ss 18:49 XRAY Foot LEFT 2 View In Process Unspecified. EDMS 18:49 Jared Ding MD is Referral Physician. snw 18:51 Phylicia Tafoya FNP-C [facility]. snw 18:51 Steven Vang MD is Attending Physician. snw 18:51 Patient did not have IV access during this emergency room visit. ss Administered Medications: 19:02 Drug: Tetanus-Diphtheria Toxoid Adult 0.5 ml {Testing And Regulating Chief: hike. Exp: hb 01/10/2022. Lot #: [id number]. } Route: IM; Site: left deltoid; 19:21 Follow up: Response: No adverse reaction hb 19:02 Drug: KeFLEX 500 mg Route: PO; 19:21 Follow up: Response: Medication administered at discharge. hb Outcome: 18:51 Discharge ordered by . carter 19:20 Discharged to home ambulatory. hb 19:20 Condition: stable 19:20 Discharge instructions given to patient, Instructed on discharge instructions, follow up and referral plans. medication usage, wound care, Demonstrated understanding of instructions, follow-up care, medications, wound care, Prescriptions given X 2. 19:22 Patient left the ED. hb Signatures: Dispatcher [employer] EDMS Phylicia Tafoya, SLIP FILLER-C SLIP FILLER-Csnw Lucy Way RN RN Shirlene Eddy RN RN Ivania Hager ag5
[2020-06-03] MEDS ORDERED: TETANUS & DIPHTHERIA TOX,ADULT 0.5 ML VIAL ONE (19:05)
[2020-06-03] MEDS ORDERED: CEPHALEXIN 250 MG CAP ONE (19:05)
--- NOTE | 2020-06-03 19:22 | RAD REPORT ---
EXAM DESCRIPTION: RAD - Foot Left 2 View - 06/03/2020 6:50 pm CLINICAL HISTORY: 1st toe injury COMPARISON: None. FINDINGS: Transverse fracture is present near the base of the first toe distal phalanx. An additiona l small sagittal fracture plane is seen along the lateral margin at the base. No distraction or angul ation deformity seen. First proximal phalanx is intact. IP joint shows mild degenerative change. The second- fifth toes are intact. Second- fifth metatarsals also intact. The No air or foreign body in the soft tissues. IMPRESSION: Nondisplaced, nonangulated fracture at the base of the first toe distal phalanx. No foreign body identified.
[2020-06-03 19:30] VITALS: BP 164/84; TEMP 98.8; O2SAT 96
== END 2020-06-03 19:22 | disposition home or self-care (01) ==
LOC: ER 17:41
PROC: 0JQR0ZZ Repair Left Foot Subcutaneous Tissue and Fascia, Open Approach (ICD-10-PCS; principal; 2020-06-03)
DX: S91.112A Laceration without foreign body of left great toe without damage to nail, initial encounter (principal); S92.425A Nondisplaced fracture of distal phalanx of left great toe, initial encounter for closed fracture; W22.8XXA Striking against or struck by other objects, initial encounter; Y93.9 Activity, unspecified; Y92.009 Unspecified place in unspecified non-institutional (private) residence as the place of occurrence of the external cause; Z23 Encounter for immunization
CPT/HCPCS: 90471; 90714; 99283

== ENCOUNTER 2022-02-11 21:38 | Emergency (ER) | payer OTHER ==
--- OUTSIDE RECORDS SUMMARY | 2022-02-11 21:42 | XMS REPORT | Continuity of Care Document ---
:1945 Author Organization [facility] t Address [address] [place] [address] Care Team Providers Name Role Phone [place] Attending Clinician Unavailable Millender Attending Clinician Unavailable DOMINGA Attending Clinician Unavailable DOMINGA Admitting Clinician Unavailable Problems This patient has no known problems. Allergies, Adverse Reactions, Alerts This patient has no known allergies or adverse reactions. Medications Ordered Filled Start Stop Current Ordering Indication Dosage Frequency Signature Comments Components Source Medication Medication Date Date Medication? Clinician (SIG) Name Name Kevin Brown Yes Yovana [address] [facility] Thyroid Thyroid 6-05 Millender on an Zakia es - 00:00: empty [facility] 00 stomach in l the [facility]ics Multivitami Multivitami Yes Yovana not [facility] n Adult n Adult Millender defined [facility] Metoprolol Metoprolol Yes Yovana [address] [facility] Succinate Succinate Millender [facility] Procedures This patient has no known procedures. Encounters Start End Encounter Admission Attending Care Care Encounter Source Date/Time Date/Time Type Type Clinicians Facility Department ID 2021-12-31 Outpatient BRYAN Hall [facility] [id number] [facility] 11:37:00 [facility] 2021[facility]12-22 [facility] [id number] [facility] 12[facility]24[facility]12 [facility] 2021[facility]-22 [facility] [id number] [facility] 12[facility]23:48 [id number] [facility] 2021-12-22 [facility] [id number] [facility] Yovana [id number] [facility] 2022-01-19 2022-01-19 [facility] [id number] [facility] 2021-07-07 2021-07-07 [facility] [id number] [facility] 2021-07-07 2021-07-07 [facility] [id number] 2021-04-01 2021-04-01 [facility] [id number] [facility] 2021-01-05 2021-01-05 [facility] [id number] [facility] 2020-08-05 2020-08-05 [facility] [id number] [facility] 13:20:00 13:20:00 [facility] l Medicine Outpat[facility] Clinics 2020-06-30 2020-06-30 [facility] [id number] [facility] 10:00:00 10:00:00 [facility] Medicine l Medicine Outpati ent Clinics 2020-05-06 2020-05-06 Outpatient [facility] [id number] [place] [address] 00:00:00 00:00:00 [facility] [address] 2020-05-05 2020-05-05 [facility] [id number] 13:40:00 13:40:00 [facility] Medicine l Medicine Outpati ent Clinics 2019-10-17 2019-10-17 [facility] [id number] [facility] 13:20:00 13:20:00 t [facility] Medicine Outpati ent Clinics 2019-07-17 2019-07-17 [facility] [id number] 16:22:00 16:22:00 t [facility] l Medicine Outpati ent Clinics 2019-07-17 2019-07-17 [facility] [id number] 13:20:00 13:20:00 t [facility] l Medicine Outpati ent Clinics 2019-06-17 2019-06-17 [facility] [id number] 14:00:00 14:00:00 [facility] l Medicine Outpati ent Clinics 2018-08-08 2018-08-08 [facility] [id number] [facility] 16:00:00 16:00:00 [facility] Medicine Outpati ent Clinics 2018-08-02 2018-08-02 [facility] [id number] [address] 09:16:00 09:16:00 t [facility] Medicine Outpati ent Clinics 2018-05-01 2018-05-01 [facility] [id number] 23:46:00 23:46:00 [facility] Medicine Outpati ent Clinics 2018-05-01 2018-05-01 [facility] [id number] 21:43:00 21:43:00 t [facility] Medicine Outpati ent Clinics 2018-05-01 2018-05-01 [facility] [id number] [facility] 11:00:00 11:00:00 [facility] Medicine Outpati ent Clinics Results This patient has no known results.
[2022-02-11 23:49] LABS: Urine Blood 3+ (Negative); Urine Glucose Negative (Negative); Urine Protein 2+ (Negative); Urine Specific Gravity >=1.030 (1.005-1.030)
--- NOTE | 2022-02-11 23:58 | EDPHYS ---
Physician Documentation [facility] Name: Michele Joseph Age: 76 yrs Sex: Male : 1945 Arrival Date: 02/11/2022 Time: 21:41 Bed 20 Private MD: ED Physician Steven Vang HPI: 02/11 23:50 This 76 yrs old Male presents to ER via Ambulatory with complaints of Urinary Retention.cp 23:50 The patient presents with urinary symptoms, retention, unable to void. Onset: The cp symptoms/episode began/occurred today. 23:50 Associated signs and symptoms: Pertinent positives: abdominal pain, Pertinent cp negatives: constipation, diarrhea, fever, vomiting. Severity of symptoms: in the emergency department the symptoms are unchanged, despite home interventions. Patient reports history of hernia repair surgery yesterday. James catheter removed earlier today and not being able to urinate since removal of catheter. Historical: - Home Meds: 23:01 thyroid medicine [Active]; al4 - PMHx: 23:01 Hypothyroidism; al4 - PSHx: 23:01 hernia surgery; al4 - Immunization history:: Adult Immunizations up to date, Client reports receiving the 2nd dose of the Covid vaccine, moderna. - Social history:: Smoking status: Patient denies any tobacco usage or history of. ROS: 23:52 Constitutional: Negative for body aches, chills, fever, poor PO intake. cp 23:52 Eyes: Negative for injury, pain, redness, and discharge. cp 23:52 Cardiovascular: Negative for chest pain, palpitations. 23:52 Respiratory: Negative for cough, shortness of breath, wheezing. 23:52 Abdomen/GI: Positive for abdominal pain, Negative for vomiting, diarrhea, constipation. 23:52 Back: Negative for pain at rest, pain with movement. 23:52 : Positive for difficulty urinating, Negative for burning with urination. 23:52 Neuro: Negative for altered mental status, headache, weakness. 23:52 All other systems are negative. Exam: 23:55 Constitutional: The patient appears in no acute distress, alert, awake, cp non-diaphoretic, non-toxic, well developed, well nourished. 23:55 Head/Face: Normocephalic, atraumatic. cp 23:55 Cardiovascular: Rate: tachycardic. 23:55 Respiratory: the patient does not display signs of respiratory distress, Respirations: normal, no use of accessory muscles, no retractions. 23:55 Abdomen/GI: Inspection: abdomen appears normal, Bowel sounds: active, all quadrants, Palpation: soft, in all quadrants, mild abdominal tenderness, in the suprapubic area, rebound tenderness, is not appreciated, involuntary guarding, is not appreciated. 23:55 Back: pain, is absent, ROM is normal. 23:55 Neuro: Orientation: to person, place \T\ time. Mentation: is normal, Motor: moves all fours, strength is normal. Vital Signs: 22:58 BP 172 / 92; Pulse 113; Resp 22; Temp 99.2; Pulse Ox 96% on R/A; Weight 88.45 kg; al4 Height 6 ft. 0 in. (182.88 cm); 02/12 00:26 BP 132 / 78; Pulse 101; Resp 20; Pulse Ox 98% on R/A; sf1 02/11 22:58 Body Mass Index 26.45 (88.45 kg, 182.88 cm) al4 MDM: 02/11 23:45 Patient medically screened. cp 23:55 Differential diagnosis: UTI, urinary retention, James catheter problem, prostatitis, cp urethritis. 23:57 Data reviewed: vital signs, nurses notes, lab test result(s). cp 23:57 Counseling: I had a detailed discussion with the patient and/or guardian regarding: the cp historical points, exam findings, and any diagnostic results supporting the discharge/admit diagnosis, to return to the emergency department if symptoms worsen or persist or if there are any questions or concerns that arise at home. Response to treatment: the patient's symptoms have markedly improved after treatment, James catheter replaced by nursing staff. Patient reports he is currently taking antibiotic. Will discharge to home for continued monitoring. 02/11 23:49 Order name: Urine Dipstick-Ancillary EDMS 02/11 23:45 Order name: Urine Dipstick-Ancillary (obtain specimen); Complete Time: 23:58 cp 02/11 23:45 Order name: James Leg Bag; Complete Time: 23:58 cp Administered Medications: No medications were administered Disposition Summary: 02/11/22 23:57 Discharge Ordered Location: Home cp Problem: new cp Symptoms: are resolved cp Condition: Stable cp Diagnosis - Retention of urine, unspecified cp Followup: cp - With: Private Physician - When: 1 - 2 days - Reason: Worsening of condition Discharge Instructions: - Discharge Summary Sheet cp - Acute Urinary Retention, Male cp Forms: - Medication Reconciliation Form cp - Thank You Letter cp - Antibiotic Education cp - Prescription Opioid Use cp Addendum: 02/17/2022 07:27 Co-signature as Attending Physician, Steven Vang MD I agree with the assessment and k dr plan of care. Signatures: Dispatcher [employer] EDSteven Brock MD MD [facility] Kamlesh Roth PA PA Andrey Thomas
--- NOTE | 2022-02-11 23:58 | ER ---
Nurse's Notes [facility] Name: Michele Joseph Age: 76 yrs Sex: Male : 1945 Arrival Date: 02/11/2022 Time: 21:41 Bed 20 Private MD: Diagnosis: Retention of urine, unspecified Presentation: 02/11 22:58 Chief complaint: Patient states: hernia surgery yesterday, catheter removed today. Dr. cordell Sol told patient that if he could not urinate by 2100 then to come to the ED. Coronavirus screen: Vaccine status: Patient reports receiving the 2nd dose of the covid vaccine. moderna. Ebola Screen: No symptoms or risks identified at this time. Initial Sepsis Screen: Does the patient meet any 2 criteria? RR > 20 per min. HR > 90 bpm. Yes Does the patient have a suspected source of infection? No. Patient's initial sepsis screen is negative. Risk Assessment: Do you want to hurt yourself or someone else? Patient reports no desire to harm self or others. Onset of symptoms was February 11, 2022. 22:58 Method Of Arrival: Ambulatory al4 22:58 Acuity: SAM 3 al4 Triage Assessment: 23:01 General: Appears in no apparent distress. uncomfortable, Behavior is cooperative, al4 agitated. Pain: Complains of pain in suprapubic area, right lower quadrant and left lower quadrant. Neuro: Level of Consciousness is awake, alert, obeys commands, Oriented to person, place, time, situation. Cardiovascular: Capillary refill < 3 seconds Patient's skin is warm and dry. Respiratory: Airway is patent Respiratory effort is unlabored, Respiratory pattern is regular. : Reports inability to void. Musculoskeletal: Circulation, motion, and sensation intact. Historical: - Home Meds: 23:01 thyroid medicine [Active]; al4 - PMHx: 23:01 Hypothyroidism; al4 - PSHx: 23:01 hernia surgery; al4 - Immunization history:: Adult Immunizations up to date, Client reports receiving the 2nd dose of the Covid vaccine, moderna. - Social history:: Smoking status: Patient denies any tobacco usage or history of. Screenin/19 00:26 Abuse screen: Denies threats or abuse. Nutritional screening: No deficits noted. sf1 Tuberculosis screening: No symptoms or risk factors identified. Fall Risk None identified. Assessment: 02/11 23:10 Reassessment: patient placed in room. al4 Vital Signs: 22:58 BP 172 / 92; Pulse 113; Resp 22; Temp 99.2; Pulse Ox 96% on R/A; Weight 88.45 kg; al4 Height 6 ft. 0 in. (182.88 cm); 02/12 00:26 BP 132 / 78; Pulse 101; Resp 20; Pulse Ox 98% on R/A; sf1 02/11 22:58 Body Mass Index 26.45 (88.45 kg, 182.88 cm) al4 ED Course: 02/11 21:41 Patient arrived in ED. es 23:01 Triage completed. al4 23:01 Arm band placed on right wrist. al4 23:29 Kamlesh Roth PA is PHCP. cp 23:29 Steven Vang MD is Attending Physician. cp 23:58 Blanche Bell RN is Primary Nurse. sf1 23:58 Urine Microscopic Only Sent. sf1 02/12 00:26 Patient has correct armband on for positive identification. sf1 00:26 No provider procedures requiring assistance completed. Patient did not have IV access sf1 during this emergency room visit. Administered Medications: No medications were administered Outcome: 02/11 23:57 Discharge ordered by . cp 02/12 00:26 Discharged to home ambulatory. sf1 Condition: good Discharge instructions given to patient, Instructed on discharge instructions, follow up and referral plans. Demonstrated understanding of instructions, follow-up care, leung bag care 00:27 Patient left the ED. sf1 Signatures: Dottie Nieves Corey, PA PA cp Ledbetter, Alexis al4 Blanche Bell RN RN sf1 Corrections: (The following items were deleted from the chart) 02/11 23: 23:15 Reassessment: patient placed in room. al4 al4
[2022-02-12 01:38] VITALS: TEMP 99.2
[2022-02-12 01:39] VITALS: BP 132/78; O2SAT 98
== END 2022-02-12 00:27 | disposition home or self-care (01) ==
LOC: ER 21:38
DX: R33.9 Retention of urine, unspecified (principal); R10.9 Unspecified abdominal pain; E03.9 Hypothyroidism, unspecified
CPT/HCPCS: 81003; 99283

== ENCOUNTER 2022-02-13 13:50 | Emergency (ER) | payer OTHER ==
--- OUTSIDE RECORDS SUMMARY | 2022-02-13 13:53 | XMS REPORT | Continuity of Care Document ---
:1945 Author Organization [facility] t Address [address] [place] [address] Care Team Providers Name Role Phone [place] Attending Clinician Unavailable Millender Attending Clinician Unavailable [...] Millender defined [facility] Metoprolol Metoprolol Yes Yovana [address] [facility] Succinate Succinate Millender [facility] Procedures This patient has no known procedures. Encounters Start End Encounter Admission Attending Care Care Encounter Source Date/Time Date/Time Type Type Clinicians Facility Department ID 2021-12-31 Outpatient BRYAN Hall [facility] [id number] [facility] 11:37:00 Tiffanie [facility] 2021-12-22 [facility] [id number] [facility] 12:24:12 [facility]iff[facility] 2021-12-22 Outpatient [facility] [id number] [facility] 12:23:48 [id number] [facility] 2021-12-22 Outpatient Anurag, [facility] [id number] [facility] 11:[facility]:31 Yovana [id number] [facility] 2022-01-19 2022-01-19 ambulatory [facility] [id number] [facility] 2021-07-07 2021-07-07 [facility] [id number] [facility] 2021-07-07 2021-07-07 [facility] [id number] [facility] 2021-04-01 2021-04-01 [facility] [id number] [facility] 2021-01-05 2021-01-05 [facility] [id number] [facility] 2020-08-05 2020-08-05 [facility] [id number] [facility] 13:20:00 13:20:00 [facility] Medicine l Medicine Outpat[facility] ent Clinics 2020-06-30 2020-06-30 [facility] [id number] [facility] 10:00:00 10:00:00 [facility] Medicine l Medicine Outpati ent Clinics 2020-05-06 2020-05-06 Outpatient [facility] [id number] [place] [address] 00:00:00 00:00:00 [facility] [address] 2020-05-05 2020-05-05 [facility] [id number] [facility] 13:40:00 13:40:00 [facility] Medicine l Medicine Outpati ent Clinics 2019-10-17 2019-10-17 [facility] [id number] [facility] 13:20:00 13:20:00 t [facility] Medicine Outpati ent Clinics 2019-07-17 2019-07-17 [facility] [id number] [address] 16:22:00 16:22:00 t [facility] l Medicine Outpati ent Clinics 2019-07-17 2019-07-17 [facility] [id number] [address] 13:20:00 13:20:00 t [facility] l Medicine Outpati ent Clinics 2019-06-17 2019-06-17 [facility] [id number] [address] 14:00:00 14:00:00 [facility] l Medicine Outpati ent Clinics 2018-08-08 2018-08-08 [facility] [id number] [address] 16:00:00 16:00:00 [facility] Medicine Outpati ent Clinics 2018-08-02 2018-08-02 [facility] [id number] 09:16:00 09:16:00 t [facility] Medicine Outpati ent Clinics 2018-05-01 2018-05-01 [facility] [id number] [address] 23:46:00 23:46:00 [facility] Medicine Outpati ent Clinics 2018-05-01 2018-05-01 [facility] [id number] 21:43:00 21:43:00 t [facility] Medicine Outpati ent Clinics 2018-05-01 2018-05-01 [facility] [id number] 11:00:00 11:00:00 [facility] Medicine Outpati ent Clinics Results This patient has no known results.
[2022-02-13] MEDS ORDERED: NA CHLORIDE 0.9% 250 ML ONE (14:46)
[2022-02-13] MEDS ORDERED: LIDOCAINE JELLY 2%- 5 ML TUBE ONE (15:01)
[2022-02-13] MEDS ORDERED: LIDOCAINE VISCOUS 2% SOLN 15 ML UDC ONE (15:01)
--- NOTE | 2022-02-13 15:59 | ER ---
Nurse's Notes [facility] Name: Michele Joseph Age: 76 yrs Sex: Male : 1945 Arrival Date: 02/13/2022 Time: 13:52 Bed 11 Private MD: Tiffanie Hall Diagnosis: Mechanical complication of urinary (indwelling) catheter;Constipation Presentation: 02/13 14:05 Chief complaint: Patient states: I had a hernia removal - left groin - ld1 02/09/2022. said if I couldn't produce urine by Monday night go to the local ER and get a straight cath. Pt received catheter from ER on Monday evening. Pt reports urine flow stopped on Monday. Pt reports not producing a bowel movement since surgery - pt has been taking Dulcolax and has not had a bowel movement. Coronavirus screen: At this time, the client does not indicate any symptoms associated with coronavirus-19. Ebola Screen: No symptoms or risks identified at this time. Initial Sepsis Screen: Does the patient meet any 2 criteria? No. Patient's initial sepsis screen is negative. Does the patient have a suspected source of infection?. Risk Assessment: Do you want to hurt yourself or someone else? Patient reports no desire to harm self or others. Onset of symptoms was February 13, 2022. 14:05 Method Of Arrival: Ambulatory ld1 14:05 Acuity: SAM 3 ld1 Triage Assessment: 14:05 General: Appears in no apparent distress. comfortable, Behavior is calm, cooperative, ld1 appropriate for age. Pain: Denies pain. Neuro: Level of Consciousness is awake, alert, obeys commands, Oriented to person, place, time, situation. Cardiovascular: Capillary refill < 3 seconds Patient's skin is warm and dry. Respiratory: Airway is patent Respiratory effort is even, unlabored, Respiratory pattern is regular, symmetrical. GI: Abdomen is flat, non-distended. : Reports inability to void. Derm: No signs and/or symptoms reported regarding the dermatologic system. Musculoskeletal: No signs and/or symptoms reported regarding the musculoskeletal system. Historical: - Allergies: 14:05 No Known Allergies; ld1 - PMHx: 14:05 Hypothyroidism; ld1 - PSHx: 14:05 hernia surgery; ld1 - Immunization history:: Adult Immunizations up to date, Client reports receiving the 2nd dose of the Covid vaccine. - Social history:: Smoking status: Patient denies any tobacco usage or history of. Patient/guardian denies using alcohol. Screenin:33 Abuse screen: Denies threats or abuse. Denies injuries from another. Nutritional ww screening: No deficits noted. Tuberculosis screening: No symptoms or risk factors identified. Assessment: 15:00 General: Appears uncomfortable, Behavior is cooperative. General: attempted to irrigate ww leung with no return. Dr. Vang notified and requested to change leung, patient informed. Pain: Denies pain. Neuro: Level of Consciousness is awake, alert, obeys commands, Oriented to person, place, time, situation, Speech is normal. Cardiovascular: Patient's skin is warm and dry. Respiratory: Airway is patent Respiratory effort is even, unlabored, Respiratory pattern is regular, symmetrical. GI: Abdomen is non-distended, bruised on suprapubic area due to recent hernia surgyer Abd is soft X 4 quads Abdomen is tender to palpation in suprapubic area. GI: Reports constipation. : no urine output Reports not voided since 10 this morning. Vital Signs: 14:05 BP 165 / 114; Pulse 97; Resp 18; Temp 98.1(TE); Pulse Ox 95% on R/A; Weight 88.45 kg; ld1 Height 6 ft. 0 in. (182.88 cm); Pain 0/10; 14:05 Body Mass Index 26.45 (88.45 kg, 182.88 cm) ld1 ED Course: 13:52 Patient arrived in ED. as 13:52 Tiffanie Hall is Private Physician. as 14:05 Arm band placed on right wrist. ld1 14:08 Triage completed. ld1 14:35 Steven Vang MD is Attending Physician. kdr 14:39 Erika Burr, RN is Primary Nurse. ww 15:33 Patient has correct armband on for positive identification. Bed in low position. Call ww light in reach. Side rails up X 1. 15:33 Leung cath inserted, using sterile technique, balloon inflated, to gravity drainage, ww other 8 german. 15:56 Tiffanie Hall is Referral Physician. kdr 15:57 Ayaan Manning MD is Referral Physician. kdr 16:10 No provider procedures requiring assistance completed. Patient did not have IV access ld1 during this emergency room visit. Administered Medications: No medications were administered Outcome: 15:58 Discharge ordered by . kdr 16:10 Discharged to home ambulatory. ld1 16:10 Condition: stable 16:10 Discharge instructions given to patient, Instructed on discharge instructions, follow up and referral plans. safety practices, Demonstrated understanding of instructions, follow-up care. 16:10 Patient left the ED. ld1 Signatures: Steven Vang MD MD kdr Yudith Sol as Winsome Mares, MAXINE RN ld1 Erika Burr RN RN ww Corrections: (The following items were deleted from the chart) 14:10 14:05 Chief complaint: Patient states: I had a hernia removal - left groin - ld1 02/09/2022. said if I couldn't produce urine by Monday night go to the local ER and get a straight cath. Pt received catheter from ER on Monday evening. Pt reports urine flow stopped on Monday. ld1
--- NOTE | 2022-02-13 15:59 | EDPHYS ---
Physician Documentation [facility] Name: Michele Joseph Age: 76 yrs Sex: Male : 1945 Arrival Date: 02/13/2022 Time: 13:52 Bed 11 Private MD: Tiffanie Hall ED Physician Steven Vang HPI: 02/13 17:36 This 76 yrs old Male presents to ER via Ambulatory with complaints of Problem With kdr Urinary Catheter - blockage, Constipation. 17:36 The patient presents with a James catheter problem, is not draining. Onset: The kdr symptoms/episode began/occurred today. Modifying factors: The symptoms are alleviated by nothing, the symptoms are aggravated by nothing. Associated signs and symptoms: The patient has no apparent associated signs or symptoms, Pertinent positives:. Severity of symptoms: At their worst the symptoms were very mild, in the emergency department the symptoms are unchanged. The patient has not experienced similar symptoms in the past. The patient has been recently seen by a physician:. Patient had a recent hernia repair. At the time of the repair it was noted that he was having some urinary difficulties so a James catheter was placed and left in place. Today the patient noted that the James catheter was not draining as it had been normally. So he presented to the ED for evaluation. He is not in any acute distress and does not appear toxic at this time. He has no other focal complaints.. Historical: - Allergies: 14:05 No Known Allergies; ld1 - PMHx: 14:05 Hypothyroidism; ld1 - PSHx: 14:05 hernia surgery; ld1 - Immunization history:: Adult Immunizations up to date, Client reports receiving the 2nd dose of the Covid vaccine. - Social history:: Smoking status: Patient denies any tobacco usage or history of. Patient/guardian denies using alcohol. ROS: 17:36 Constitutional: Negative for fever, chills, and weight loss, Eyes: Negative for injury, kdr pain, redness, and discharge, ENT: Negative for injury, pain, and discharge, Neck: Negative for injury, pain, and swelling, Cardiovascular: Negative for chest pain, palpitations, and edema, Respiratory: Negative for shortness of breath, cough, wheezing, and pleuritic chest pain, Abdomen/GI: Negative for abdominal pain, nausea, vomiting, diarrhea, and constipation, Back: Negative for injury and pain, MS/Extremity: Negative for injury and deformity, Skin: Negative for injury, rash, and discoloration, Neuro: Negative for headache, weakness, numbness, tingling, and seizure activity. Psych: Negative for depression, anxiety, suicide ideation, homicidal ideation, and hallucinations, Allergy/Immunology: Negative for hives, rash, and allergies, Endocrine: Negative for neck swelling, polydipsia, polyuria, polyphagia, and marked weight changes, Hematologic/Lymphatic: Negative for swollen nodes, abnormal bleeding, and unusual bruising. 17:36 Abdomen/GI: Positive for Patient has ecchymosis on his anterior abdominal wall and suprapubic area. 17:36 : Positive for A James catheter in place that has appears to be normally situated. No drainage around the James. Exam: 17:36 Constitutional: This is a well developed, well nourished patient who is awake, alert, kdr and in no acute distress. Head/Face: Normocephalic, atraumatic. Eyes: Pupils equal round and reactive to light, extra-ocular motions intact. Lids and lashes normal. Conjunctiva and sclera are non-icteric and not injected. Cornea within normal limits. Periorbital areas with no swelling, redness, or edema. Neck: Trachea midline, no thyromegaly or masses palpated, and no cervical lymphadenopathy. Supple, full range of motion without nuchal rigidity, or vertebral point tenderness. No Meningismus. Chest/axilla: Normal chest wall appearance and motion. Nontender with no deformity. No lesions are appreciated. Cardiovascular: Regular rate and rhythm with a normal S1 and S2. No gallops, murmurs, or rubs. Normal PMI, no JVD. No pulse deficits. Respiratory: Lungs have equal breath sounds bilaterally, clear to auscultation and percussion. No rales, rhonchi or wheezes noted. No increased work of breathing, no retractions or nasal flaring. Abdomen/GI: Soft, non-tender, with normal bowel sounds. No distension or tympany. No guarding or rebound. No evidence of tenderness throughout. Back: No spinal tenderness. No costovertebral tenderness. Full range of motion. MS/ Extremity: Pulses equal, no cyanosis. Neurovascular intact. Full, normal range of motion. Neuro: Awake and alert, GCS 15, oriented to person, place, time, and situation. Cranial nerves II-XII grossly intact. Motor strength 5/5 in all extremities. Sensory grossly intact. Cerebellar exam normal. Normal gait. Psych: Awake, alert, with orientation to person, place and time. Behavior, mood, and affect are within normal limits. 17:36 Skin: Appearance: ecchymosis, that are mild, and are scattered, and are diffusely located. Vital Signs: 14:05 BP 165 / 114; Pulse 97; Resp 18; Temp 98.1(TE); Pulse Ox 95% on R/A; Weight 88.45 kg; ld1 Height 6 ft. 0 in. (182.88 cm); Pain 0/10; 14:05 Body Mass Index 26.45 (88.45 kg, 182.88 cm) ld1 MDM: 15:58 Patient medically screened. kdr 17:36 Data reviewed: vital signs, nurses notes, lab test result(s), radiologic studies. kdr Counseling: I had a detailed discussion with the patient and/or guardian regarding: the historical points, exam findings, and any diagnostic results supporting the discharge/admit diagnosis, lab results, radiology results, the need for outpatient follow up. ED course: Patient's main concern was that if the James catheter did not drain, he would be stuck in the lobby in excruciating pain way to come back to get the problem resolved. Therefore he wanted to know that this is not going to recur. Discussed with with the patient the fact that there was a 250 cc residual in the bladder at this time with little or no drainage from the James. I indicated that should he not start to get some drainage over the next few hours, that he should come back rather than wait until he was in excruciating pain. I discussed the patient's presentation with Dr. Sol who had performed the hernia repair. I indicated the findings and the plan for follow-up. He was in agreement with that plan and would try to help facilitate more prompt evaluation by urology. Overall patient was happy with the care provided and the plan for discharge and follow-up. 02/13 14:38 Order name: [facility]. Order: Irrigate James ; Complete Time: 15:30 kdr Administered Medications: No medications were administered Disposition Summary: 02/13/22 15:58 Discharge Ordered Location: Home kdr Problem: new kdr Symptoms: have improved kdr Condition: Stable kdr Diagnosis - Mechanical complication of urinary (indwelling) catheter kdr - Constipation kdr Followup: kdr - With: Tiffanie Hall - When: 2 - 3 days - Reason: If symptoms return, Further diagnostic work-up, Recheck today's complaints, Continuance of care, Re-evaluation by your physician Followup: kdr - With: Ayaan Manning MD - When: 2 - 3 days - Reason: If symptoms return, Further diagnostic work-up, Recheck today's complaints, Continuance of care, Re-evaluation by your physician Discharge Instructions: - Discharge Summary Sheet kdr - Indwelling Urinary Catheter Care, Adult, [id number] kdr Forms: - Medication Reconciliation Form kdr - Thank You Letter kdr Prescriptions: - Dulcolax (bisacodyl) 10 mg Rectal suppository - insert 1 suppository by RECTAL route once daily As needed as needed for kdr constipation; 20 suppository; Refills: 0, Product Selection Permitted - Flomax 0.4 mg Oral capsule - take 1 capsule by ORAL route once daily 1/2 hour following the same meal each kdr day; 20 capsule; Refills: 0, Product Selection Permitted - Miralax 17 gram Oral powder in packet - take 1 packet by ORAL route once daily As needed; 1 box; Refills: 0, Product kdr Selection Permitted Signatures: Steven Vang MD MD kdr Winsome Mares RN RN ld1
[2022-02-13 18:28] VITALS: BP 165/114; TEMP 98.1; O2SAT 95
== END 2022-02-13 16:10 | disposition home or self-care (01) ==
LOC: ER 13:50
DX: T83.018A Breakdown (mechanical) of other urinary catheter, initial encounter (principal); K59.00 Constipation, unspecified
CPT/HCPCS: 51702; 99284; J7050

== ENCOUNTER 2022-06-07 08:28 | Day surgery (SDC) | payer OTHER ==
--- NOTE | 2022-06-02 14:48 | RAD REPORT ---
EXAM DESCRIPTION: Bettie Jason And Lat (2 Views)06/02/2022 2:30 pm CLINICAL HISTORY: Preop for TURP COMPARISON: 2019 FINDINGS: Lungs are mildly hyperaerated. The lungs appear clear of acute infiltrate. The heart is normal size IMPRESSION: No acute abnormalities displayed
[2022-06-02 15:00] LABS: Absolute Lymphocytes (CBC) 1.5 K/uL (0.7-4.9); Hematocrit 44.5 % (39.6-49.0); MPV 7.9 fL (7.6-11.3); RBC Red Blood Cell Count 4.84 M/uL (4.33-5.43)
[2022-06-02 15:02] LABS: Protime INR 1.04
[2022-06-02 15:31] LABS: SARS-CoV-2 Antigen Rapid Res Negative (Negative)
--- NOTE | 2022-06-06 14:01 | EKG ---
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
[~2022-06-07 08:28] MED LIST: AMPICILLIN SODIUM 2 GM in NA CHLORIDE 0.9% 100 ML IVPB ONE; Gentamicin Inj 180 MG in NA CHLORIDE 0.9% 100 ML IVPB ONE
[2022-06-07] MEDS ORDERED: Ringers Lactate 1,000 ML IV ONE (08:48)
[2022-06-07] MEDS ORDERED: FENTANYL CITR 100 MCG/2 ML ONE ×2 (13:52→14:47)
[2022-06-07] MEDS ORDERED: LIDOCAINE 1% MPF 5 ML VIAL ONE (13:53)
[2022-06-07] MEDS ORDERED: propofoL 200 MG/20 ML VIAL IV ONE (13:53)
[2022-06-07] MEDS ORDERED: MIDAZOLAM HCL 2 MG/2 ML INJ ONE (13:53)
[2022-06-07] MEDS ORDERED: ROCURONIUM 50 MG/5 ML VIAL IV ONE (13:53)
[2022-06-07] MEDS ORDERED: ONDANSETRON 4 MG/2 ML VIAL ONE ×2 (13:56→14:40)
[2022-06-07] MEDS ORDERED: CODEINE 30MG/APAP 300MG TAB PO PRN (14:17)
[2022-06-07] MEDS ORDERED: OPIUM/BELLADONNA SUPPOS (30-16.2 MG) PR ONE ×2 (14:17→16:20)
[2022-06-07] MEDS ORDERED: EPHEDRINE SULF 50 MG/ML VIAL ONE (14:42)
[2022-06-07] MEDS ORDERED: GLYCOPYRROLATE 0.2 MG/ML SYR ONE ×2 (15:21)
[2022-06-07] MEDS ORDERED: NEOSTIGMINE 1 MG/ML -10 ML VIAL ONE (15:21)
[2022-06-07 16:59] VITALS: BP 164/94; O2SAT 97
[2022-06-07 17:27] VITALS: TEMP 97.8
--- NOTE | 2022-06-07 19:49 | OP ---
Surgeon: COOKIE GROSS Preoperative Diagnoses: 1.Benign prostatic hypertrophy with lower urinary tract obstruction. 2.Acute urinary retention. Postoperative Diagnoses: 1.Benign prostatic hypertrophy with lower urinary tract obstruction. 2.Acute urinary retention. 3.Bladder neck contracture, acquired. 4.History of transurethral resection of the prostate. 5.Meatal dilation using sounds. Principal Procedure: Bipolar transurethral resection of the prostate. Indication For Procedure: Mr. Jamison presented to the [facility]rology [facility] with obstructive urinary symp toms and an issue with acute urinary retention requiring catheter placement. He underwent outpatient cystoscopic evaluation revealing the presence of a relatively patent, but somewhat contractured blad vu neck following a history of bipolar TURP with Dr. Munoz several years ago with some residual apic al lateral lobar hypertrophy, potentially underlying the obstruction. I counseled the patient that g iven his lack of neurologic signs or symptoms despite prior lumbar spinal procedures, it was likely t he residual tissue and/or contracture may be contributing to obstruction, which precipitated his rete ntion. We discussed the potential role for urodynamics evaluation before proceeding with TURP, but u ltimately elected to proceed with surgical therapy. Procedure In Detail: The patient was consented in the preoperative holding area before being transfe rred to operative suite where general anesthesia was induced. He was given ampicillin 2 g and gentam icin 180 mg IV antimicrobial prophylaxis. Pneumo boots were provided for DVT prophylaxis. He was pl aced in the lithotomy position, padded and secured to the table appropriately. His genitalia were pr epped using Hibiclens and he was draped in standard fashion. The case was begun using urethral sound s to dilate the meatus and fossa navicularis to 30-[place]. After sufficient dilation had been achiev ed, I was then able to utilize a visual obturator and the 26-[place] bipolar resectoscope to traverse the urethra and into the bladder with ease. There was evident contracture at the bladder neck that d id cause a degree of difficulty passing the sheath into the bladder, but this was a minimal degree of obstruction. The bladder was surveyed, and there were no papillary mucosal lesions, foreign bodies, or stones noted throughout. The ureteral orifices were orthotopic in location. The bladder neck wa s somewhat elevated despite being relatively patent with the bladder neck contracture. As a result, I began by resecting the elevated component of the median bar at the bladder neck until it was levele d with the trigone. I then continued the resection of the median bar down to the level of the verumo ntanum to ensure a smooth trough had been created. Resection was then continued involving the bladde r neck contracture laterally and anteriorly in order to achieve a widely patent bladder neck. Then, the remainder of any lateral lobar hypertrophy that was intraluminally projecting was similarly resec sabrina bilaterally. In the end, once there was no residual obstruction observed even with the bladder c ompletely decompressed, a careful search for bleeding was undertaken, and all bleeding vessels were p inpoint fulgurated. With no ongoing bleeding despite the bladder being decompressed, I then removed the prostatic chips under direct vision. Ellik evacuation was also employed. In the end, the prosta tic fossa was completely hemostatic, there was no evidence of bladder or ureteral orifice injury, so I left the bladder filled with saline before passing a 24-[place] 3-way James into his bladder with ea se. 30 cc of sterile water was placed into the balloon, and the catheter was connected to slow drip CBI with completely clear efflux of fluid and urine. He was then taken out of the lithotomy position , awakened from general anesthesia, transferred to a stretcher, and then transferred to the recovery room in good condition. Complications: None. Discharge Disposition: He should follow up in the Urology Clinic on Monday for a voiding trial and c atheter removal. Bactrim Double Strength and antimicrobial prophylaxis have been provided along with Tylenol with Codeine for pain ma nagement were necessary. WR/MODL Voice ID: [id number] Report ID: [id number]
== END 2022-06-07 17:30 | disposition home or self-care (01) ==
LOC: OR 08:28
PROVIDERS: ATTEND Urology
PROC: 0T7D8ZZ Dilation of Urethra, Via Natural or Artificial Opening Endoscopic (ICD-10-PCS; 2022-06-07)
PROC: 0VT08ZZ Resection of Prostate, Via Natural or Artificial Opening Endoscopic (ICD-10-PCS; principal; 2022-06-07 11:00)
DX: N40.1 Benign prostatic hyperplasia with lower urinary tract symptoms (principal); R33.9 Retention of urine, unspecified
CPT/HCPCS: 93005; 87088; 85025; 87086; 36415; 85610; 88305; 71046; 87811; 52630; J2704; J2710; J1580; J2250; J3010 ×2; J7120; J2405 ×2; J0290

== ENCOUNTER → 2023-12-10 | Emergency (ER) | payer OTHER ==
[~2023-12-10] MED LIST changes: -AMPICILLIN SODIUM 2 GM in NA CHLORIDE 0.9% 100 ML IVPB ONE; +FLUORESCEIN SODIUM 1 MG/WRAP ONE; -Gentamicin Inj 180 MG in NA CHLORIDE 0.9% 100 ML IVPB ONE; +TETRACAINE HCL 0.5% 4ML OPTH ONE; +TOBRAMYCIN SULF 0.3% OPTH OINT ONE
--- NOTE | 2023-12-10 19:45 | EDPHYS ---
Physician Documentation [facility] Name: Michele Joseph Age: 78 yrs Sex: Male : 1945 Arrival Date: 12/10/2023 Time: 19:05 Bed 5 Private MD: Tiffanie Hall ED Physician Gordo Hou HPI: 12/10 19:13 This 78 yrs old Male presents to ER via Unassigned with complaints of Eye sp4 Problem. 19:24 Left eye pain and irritation starting 2 hour ago . sp4 20:59 Patient presents with left eye irritation starting 2 hours ago after he accidentally sp4 curetted some of the pencil S juice into the left eye. Patient states he irrigated the left eye at home with tap water. Eye redness and pain continued and patient presented to the ER for evaluation. . Historical: - Allergies: 19:23 No Known Allergies; cm10 - PMHx: 19:23 Hypothyroidism; cm10 - PSHx: 19:23 hernia surgery; cm10 - Immunization history:: Adult Immunizations up to date. - Social history:: Smoking status: Patient denies any tobacco usage or history of. - Family history:: not pertinent. ROS: 20:59 Constitutional: Negative for fever, chills, and weight loss, Eyes: Positive left eye sp4 pain, redness swelling and irritation 20:59 All other systems are negative, Exam: 20:59 Constitutional: This is a well developed, well nourished patient who is awake, alert, sp4 and in no acute distress. Head/Face: Normocephalic, atraumatic. Eyes: Pupils equal round and reactive to light, extra-ocular motions intact. Lids and lashes normal. Right eye examination is normal. Left eye examination reveals erythematous conjunctiva with mild conjunctival swelling, conjunctival injection present, fluorescein eye exam reveals no corneal abrasions or ulcers.. Cornea within normal limits. Periorbital areas with no swelling, redness, or edema. Mild redness about the left eye from rubbing. ENT: Nares patent. No nasal discharge, no septal abnormalities noted. Tympanic membranes are normal and external auditory canals are clear. Oropharynx with no redness, swelling, or masses, exudates, or evidence of obstruction, uvula midline. Mucous membranes moist. Neck: Trachea midline, no thyromegaly or masses palpated, and no cervical lymphadenopathy. Supple, full range of motion without nuchal rigidity, or vertebral point tenderness. Chest/axilla: Normal chest wall appearance and motion. Nontender with no deformity. No lesions are appreciated. Cardiovascular: Regular rate and rhythm with a normal S1 and S2. No gallops, murmurs, or rubs. Normal PMI, no JVD. No pulse deficits. Respiratory: Lungs have equal breath sounds bilaterally, clear to auscultation and percussion. No rales, rhonchi or wheezes noted. No increased work of breathing, no retractions or nasal flaring. Abdomen/GI: Soft, non-tender, with normal bowel sounds. No distension or tympany. No guarding or rebound. No evidence of tenderness throughout. Back: No spinal tenderness. No costovertebral tenderness. There is sacral decubitus ulcer that is covered by the wound VAC. Skin: Warm, dry with normal turgor. Normal color with no rashes, no lesions, and no evidence of cellulitis. MS/ Extremity: Pulses equal, no cyanosis. Neurovascular intact. Full, normal range of motion. Neuro: Awake and alert, GCS 15, oriented to person, place, time, and situation. Cranial nerves II-XII grossly intact. Motor strength 5/5 in all extremities. Sensory grossly intact. Psych: Awake, alert, with orientation to person, place and time. Behavior, mood, and affect are within normal limits Vital Signs: 19:21 BP 177 / 102; Pulse 99; Resp 18; Temp 98.4; Pulse Ox 96% on R/A; Weight 90.72 kg; cm10 Height 6 ft. 0 in. ; Pain 8/10; 19:21 Body Mass Index 27.12 (90.72 kg, 182.88 cm) cm10 19:21 Pain Scale: Adult cm10 Procedures: 20:59 Performed Left eye saline irrigation. Left eye irrigated heavily with saline after sp4 tetracaine eyedrops. Patient reported improvement. MDM: 19:13 Patient medically screened. sp4 20:59 Differential diagnosis: Corneal abrasion of Corneal ulcer of Foreign body in Acute sp4 iritis of Acute glaucoma in Data reviewed: vital signs, nurses notes. ED course: Patient stable for discharge home with advice to irrigate with saline every 2 hours, also use tobramycin eyedrops by prescription every 4 hours to the left eye. For 5-day period. . 12/10 19:23 Order name: Eye Tray; Complete Time: 20:03 sp4 12/10 19:23 Order name: Fluoresene Opth strip; Complete Time: 19:33 sp4 Administered Medications: 19:45 Drug: Tetracaine Ophthalmic Drops 0.5 % 1 drops Ophthalmic once {Note: administered by as6 provider .} Route: Ophthalmic; Site: left eye; 20:03 Not Given (Physician Discretion): tobramycindrops (0.3 %) 2 drops Ophthalmic once nw1 Disposition Summary: 12/10/23 19:45 Discharge Ordered Problem: new sp4 Symptoms: have improved sp4 Condition: Stable sp4 Diagnosis - Unspecified acute conjunctivitis, left eye sp4 - chemical conjuctivitis sp4 Followup: sp4 - With: Vasquez Gee MD - When: 2 - 3 days - Reason: Recheck today's complaints Discharge Instructions: - Discharge Summary Sheet sp4 - Chemical Conjunctivitis, Adult, [id number] sp4 Forms: - Patient Portal Instructions sp4 Prescriptions: - tobramycin 0.3 % Ophthalmic drops - instill 2 drop OPHTHALMIC route every 4 hours for 5 days 2 drops Every 4 hours sp4 for 5 days to left eye; 5 milliliter; Refills: 0, Product Selection Permitted Signatures: Adin Harmon RN RN as6 Gordo Hou MD MD sp4 Lanette Slo RN RN cm10 Christine Morrissey RN nw1
--- NOTE | 2023-12-10 19:45 | ER ---
Nurse's Notes [facility] Name: Michele Joseph Age: 78 yrs Sex: Male : 1945 Arrival Date: 12/10/2023 Time: 19:05 Bed 5 Private MD: Tiffanie Hall Diagnosis: Unspecified acute conjunctivitis, left eye;chemical conjuctivitis Presentation: 12/10 19:21 Chief complaint: Patient states: Left eye pain and burning. Pt states that this started cm10 while taking a shower. Coronavirus screen: Vaccine status: Patient reports receiving the 2nd dose of the covid vaccine. Client denies travel out of the [place] in the last 14 days. Ebola Screen: Patient denies travel to an Ebola-affected area in the 21 days before illness onset. No symptoms or risks identified at this time. Initial Sepsis Screen: Does the patient meet any 2 criteria? No. Patient's initial sepsis screen is negative. Does the patient have a suspected source of infection? No. Patient's initial sepsis screen is negative. Risk Assessment: Do you want to hurt yourself or someone else? Patient reports no desire to harm self or others. Onset of symptoms was December 10, 2023. 19:21 Method Of Arrival: Ambulatory cm10 19:21 Acuity: SAM 3 cm10 Triage Assessment: 19:23 General: Appears in no apparent distress. uncomfortable, Behavior is calm, cooperative. cm10 Pain: Complains of pain in left eye. EENT: No deficits noted. Eyes are tearing on left eye Reports blurred vision in left eye pain in left eye. Neuro: No deficits noted. Level of Consciousness is awake, alert, Oriented to person, place, time, situation. Cardiovascular: No deficits noted. Patient's skin is warm and dry. Respiratory: No deficits noted. Airway is patent Respiratory effort is even, unlabored, Respiratory pattern is regular, symmetrical. GI: No deficits noted. No signs and/or symptoms were reported involving the gastrointestinal system. : No deficits noted. No signs and/or symptoms were reported regarding the genitourinary system. Derm: No deficits noted. No signs and/or symptoms reported regarding the dermatologic system. Skin is intact, Skin is pink, warm \T\ dry. Musculoskeletal: No deficits noted. No signs and/or symptoms reported regarding the musculoskeletal system. Range of motion: intact in all extremities. Historical: - Allergies: 19:23 No Known Allergies; cm10 - PMHx: 19:23 Hypothyroidism; cm10 - PSHx: 19:23 hernia surgery; cm10 - Immunization history:: Adult Immunizations up to date. - Social history:: Smoking status: Patient denies any tobacco usage or history of. - Family history:: not pertinent. Screenin:03 [facility] ED Fall Risk Assessment (Adult) History of falling in the last 3 months, nw1 including since admission No falls in past 3 months (0 pts) Confusion or Disorientation No (0 pts) Intoxicated or Sedated No (0 pts) Impaired Gait No (0 pts) Mobility Assist Device Used No (0 pt) Altered Elimination No (0 pt) Score/Fall Risk Level 0 - 2 = Low Risk Oriented to surroundings, Maintained a safe environment, Educated pt \T\ family on fall prevention, incl call for assistance when getting out of bed, Assessed \T\ reinforced patient's understanding of fall precautions, Provided non-skid footwear, Hourly rounding (assess needs \T\ fall precautionary measures) done. Abuse screen: Denies threats or abuse. Denies injuries from another. Nutritional screening: No deficits noted. Tuberculosis screening: No symptoms or risk factors identified. Assessment: 20:03 Reassessment: Pt to room and MD completed assessment. Pt to be discharged. Per patient, nw1 he was tending to his cacti and when washing his face, pt felt pain in his left eye. Noted redness in conjunctiva of left eye. Vital Signs: 19:21 BP 177 / 102; Pulse 99; Resp 18; Temp 98.4; Pulse Ox 96% on R/A; Weight 90.72 kg; cm10 Height 6 ft. 0 in. ; Pain 8/10; 19:21 Body Mass Index 27.12 (90.72 kg, 182.88 cm) cm10 19:21 Pain Scale: Adult cm10 ED Course: 19:08 Patient arrived in ED. rg4 19:08 Tiffanie Hall is Private Physician. rg4 19:13 Gordo Hou MD is Attending Physician. sp4 19:23 Triage completed. cm10 19:24 Arm band placed on Patient placed in an exam room, on a stretcher. cm10 19:44 Vasquez Gee MD is Referral Physician. sp4 20:03 Christine Morrissey, RN is Primary Nurse. nw1 20:03 Patient has correct armband on for positive identification. Placed in gown. Bed in low nw1 position. Call light in reach. Side rails up X2. Provided Education on: POC. Client placed on continuous cardiac and pulse oximetry monitoring. NIBP monitoring applied. color television console monitor on. Pulse ox on. 20:03 No provider procedures requiring assistance completed. Patient did not have IV access nw1 during this emergency room visit. Administered Medications: :45 Drug: Tetracaine Ophthalmic Drops 0.5 % 1 drops Ophthalmic once {Note: administered by as6 provider .} Route: Ophthalmic; Site: left eye; 20:03 Not Given (Physician Discretion): tobramycindrops (0.3 %) 2 drops Ophthalmic once nw1 Medication: 20:03 VIS not applicable for this client. nw1 Outcome: :45 Discharge ordered by MD. sp4 20:03 Discharged to home ambulatory, nw1 20:03 Condition: stable 20:03 Discharge instructions given to patient, Instructed on discharge instructions, follow up and referral plans. Demonstrated understanding of instructions, follow-up care, medications, Prescriptions given X 1, 20:22 Patient left the ED. nw1 Signatures: Melissa Nice rg4 Adin Harmon, MAXINE RN as6 Gordo Hou MD MD sp4 Lanette Sol RN RN cm10 Christine Morrissey, RN RN nw1
[2023-12-10 21:29] VITALS: BP 177/102; TEMP 98.4; O2SAT 96
== END ==
LOC: ER 19:05
DX: H10.212 Acute toxic conjunctivitis, left eye (principal)
CPT/HCPCS: 99284